=== PATIENT | female | born 1995 | race American Indian/Alaskan Native ===

== ENCOUNTER 2017-08-11 14:46 | Inpatient (IN) | payer OTHER, MEDICAID ==
[2017-08-11] MEDS ORDERED: LACTATED RINGERS 1,000 ML IV ONE (14:57)
[2017-08-11 15:17] LABS: Urine Drugs of Abuse Note Disclamer
[2017-08-11] MEDS ORDERED: PHENERGAN PO ONE (15:27)
[2017-08-11 15:31] LABS: Bilirubin,Urine NEG (Negative); Blood,Urine NEG (Negative); Ketones,Urine 80 mg/dL (Negative); Leukocyte Esterase,Urine NEG (Negative); Mucus,Urine 3+ /HPF; Nitrite,Urine NEG (Negative)
[2017-08-11 16:23] LABS: Basophils % (Auto) 0.3 % (0.0-1.8); Eosinophils % (Auto) 0.1 % (0.0-4.3); Hematocrit 44.7 % (30.3-42.9); Hemoglobin 15.9 gm/dl (10.1-14.3); Mean Corpuscular HGB Conc 36 % (30-34); Mean Corpuscular Hemoglobin 29 pg (28-32); Mean Corpuscular Volume 81 fl (79-97); Platelet Count 208 K/mm3 (140-440); Red Cell Distribution Width 13.7 % (13.2-15.2); White Blood Count 8.6 K/mm3 (4.5-11.0)
--- NOTE | 2017-08-11 16:43 | Ultrasound Report ---
FINAL REPORT PROCEDURE: US OB \T\gt; = 14 WEEKS FETUS TECHNIQUE: Transabdominal ultrasound of the gravid pelvis was performed. HISTORY: no care COMPARISON: None FINDINGS: There is a single live intrauterine gestation in cephalic presentation. The cervix is closed 3 centimeters in length. heart rate of 141 beats per minute was noted. The placenta is anterior without evident abruption or previa. Normal appearing 4 chambered heart, stomach, diaphragm, urinary bladder, head, and limited views of the spine and extremities was seen. BPD is 4.9 centimeters suggesting a gestational age of 20 weeks 6 days Head circumference is 17.1 centimeters suggesting a gestational age of 19 weeks 5 days Abdominal circumference is 14.3 centimeters suggesting a gestational age of 19 weeks 5 days Femur length is 3.3 centimeters suggesting a gestational age of 20 weeks 3 days Estimated weight is 327 grams Estimated date of confinement is 12/28/2017 IMPRESSION: Single live intrauterine gestation in cephalic presentation. Measured gestational age of 20 weeks 1 day.
[2017-08-11 16:55] LABS: Potassium TNR mmol/L (3.6-5.0); Sodium TNR mmol/L (137-145)
[2017-08-11 16:56] LABS: Anion Gap TNR mmol/L; Blood Urea Nitrogen TNR mg/dL (7-17); Carbon Dioxide TNR mmol/L (22-30); Chloride TNR mmol/L (98-107)
[2017-08-11 16:57] LABS: BUN/Creatinine Ratio TNR; Bilirubin,Direct TNR mg/dL (0-0.2); Bilirubin,Indirect TNR mg/dL; Bilirubin,Total TNR mg/dL (0.1-1.2); Calcium TNR mg/dL (8.4-10.2); Glucose TNR mg/dL (65-100)
[2017-08-11 16:58] LABS: Alanine Aminotransferase TNR units/L (7-56); Albumin TNR g/dL (3.9-5); Albumin/Globulin Ratio TNR %; Alkaline Phosphatase TNR units/L (35-129); Total Protein TNR g/dL (6.3-8.2)
[2017-08-11] MEDS ORDERED: PHENERGAN PR ONE (17:30)
[2017-08-11] MEDS ORDERED: D5LR 1,000 ML IV SCH (17:30)
[2017-08-11] MEDS ORDERED: REGLAN IV ONE (17:49)
[2017-08-11] MEDS ORDERED: CELESTONE SOLUSPAN IM ONE (18:13)
[2017-08-11 18:15] LABS: Alanine Aminotransferase 11 units/L (7-56); Albumin 3.5 g/dL (3.9-5); Albumin 3.6 g/dL (3.9-5); Albumin/Globulin Ratio 1.3 %; Albumin/Globulin Ratio 1.4 %; Alkaline Phosphatase 65 units/L (35-129); Anion Gap 19 mmol/L; BUN/Creatinine Ratio 20; Bilirubin,Direct 0.3 mg/dL (0-0.2); Bilirubin,Indirect 1.3 mg/dL; Bilirubin,Total 1.6 mg/dL (0.1-1.2); Blood Urea Nitrogen 8 mg/dL (7-17); Calcium 8.5 mg/dL (8.4-10.2); Carbon Dioxide 19 mmol/L (22-30); Chloride 97.7 mmol/L (98-107); Glucose 65 mg/dL (65-100); Potassium 3.1 mmol/L (3.6-5.0); Sodium 133 mmol/L (137-145); Total Protein 6.1 g/dL (6.3-8.2)
[2017-08-11] MEDS ORDERED: REGLAN IV PRN (18:46)
[2017-08-11] MEDS ORDERED: PHENERGAN PR PRN (18:47)
[2017-08-11] MEDS ORDERED: SUBLIMAZE IV ONE ×2 (19:32→20:15)
[2017-08-11] MEDS ORDERED: TRANSDERM-SCOP TD ONE (20:00)
[2017-08-11] MEDS ORDERED: PEPCID IV SCH (20:00)
--- NOTE | 2017-08-11 21:11 | Ultrasound Report ---
FINAL REPORT EXAM: US ABDOMEN COMPLETE HISTORY: abdominal pain, nausea and vomitting . Patient is 22 weeks . TECHNIQUE: Standard ultrasound of the abdomen PRIORS: None. FINDINGS: Examination of the gallbladder demonstrates no evidence for gallstones, distention, wall thickening, or pericholecystic fluid. No sonographic Pickering's sign is elicited. Common bile duct is normal in diameter measuring 3.7 mm. The liver is normal and homogeneous in echogenicity without focal abnormality or intrahepatic biliary dilatation. The pancreas is normal in thickness without focal abnormality or pancreatic duct dilatation. The spleen is normal in length measuring 8.3 cm and homogeneous in echogenicity without focal abnormalities. Examination of the kidneys demonstrates both to be normal in size and have normal cortical echogenicity and thickness. The right and left kidneys measure 9.8 cm and 10.0 cm in craniocaudal length, respectively. No evidence for calculi, hydronephrosis, or solid mass is seen in either kidney. The inferior vena cava and aorta are normal. Maximum diameter of the aorta is 1.4 cm in its proximal portion. IMPRESSION: Normal ultrasound of the abdomen.
--- NOTE | 2017-08-11 23:46 | History and Physical Report ---
History of Present Illness Date of examination: 08/11/17 Date of admission: 08/11/17 20:10 Chief complaint: nausea and vomiting and abdominal pain History of present illness: This is a 21 yo at 20 weeks here for nausea and vomiting for 5 days. She has also had some pelvic pain. She has a hx of biliary colic and was induced in her last for irretractable nausea and vomiting at 34 weeks. she is admitted for hyperemesis gravidarum. Despite fluids and antiemetics still nauseated Past History Past Medical History: asthma, other (Biliary colic, bronchitis ) Past Surgical History: no surgical history Family/Genetic History: diabetes Social history: no significant social history, single, smoking (former). denies : alcohol abuse, prescription drug abuse - Obstetrical History Expected Date of Delivery: 12/25/17 Actual Gestation: 20 Week(s) 4 Day(s) : 2 Para: 1 Hx # Term Pregnancies: 0 Number of Pregnancies: 1 Spontaneous Abortions: 0 Induced : 0 Number of Living Children: 1 Medications and Allergies Allergies Allergy/AdvReac Type Severity Reaction Status Date / Time ondansetron HCl Allergy Vomiting Verified 03/23/15 15:49 [From Zofran (as hydrochloride)] pineapple [Pineapple] Allergy Itching Verified 03/23/15 15:49 Home Medications Medication Instructions Recorded Confirmed Last Taken Type Pnv No.95/Ferrous Fum/Folic AC 1 each PO QDAY 12/07/15 04/18/16 Unknown History [ Caplet] HYDROcodone/APAP 5-325 [[place] 1 each PO Q6HR PRN #30 tablet 04/22/16 Unknown Rx 5/325] Ibuprofen [Motrin] 800 mg PO Q8HR PRN #60 tablet 04/22/16 Unknown Rx Active Meds: Active Medications Famotidine (Pepcid) 20 mg IV QDAY JUAN Dextrose/Lactated Ringer's (D5lr) 1,000 mls @ 200 mls/hr IV DIRECT JUAN Last Admin: 08/11/17 17:57 Dose: 200 mls/hr Potassium Chloride 20 meq/ (Dextrose/Lactated Ringer's) 1,010 mls @ 125 mls/hr IV DIRECT JUAN Influenza Virus Vaccine Quadrival (Fluarix Quad [id number](36 Mos+) 0.5 ml IM .ONCE ONE Stop: 08/12/17 12:01 Metoclopramide HCl (Reglan) 10 mg IV Q8H PRN PRN Reason: Nausea And Vomiting Pneumococcal Polyvalent Vaccine (Pneumovax 23) 0.5 ml IM .ONCE ONE Stop: 08/12/17 12:01 Promethazine HCl (Phenergan) 25 mg [place] Q4H PRN PRN Reason: Nausea And Vomiting Review of Systems Constitutional: weight loss, weakness Gastrointestinal: abdominal pain, nausea, vomiting Genitourinary: deferred Rectal Exam: deferred - Vital Signs Vital signs: Vital Signs Temp Resp 97.4 F L 18 08/11/17 14:50 08/11/17 14:50 Temp Pulse Resp BP Pulse Ox 97.8 F 66 18 105/56 08/11/17 21:09 08/11/17 21:09 08/11/17 14:50 08/11/17 21:09 - Physical Exam Breasts: Positive: deferred Cardiovascular: Regular rate, Normal S1 Lungs: Positive: Clear to auscultation, Normal air movement Abdomen: Positive: normal appearance, soft, normal bowel sounds. Negative: distention, tenderness, guarding Genitourinary (Female): Positive: normal external genitalia, normal perenium Vulva: both: normal Vagina: Positive: normal moisture Adnexa: both: normal Anus/Rectum: Positive: normal perianal skin Extremities: Positive: normal Deep Tendon Reflex Grade: Normal +2 - Obstetrical FHR: auscultation normal Results Result Diagrams: 08/11/17 15:20 08/11/17 17:38 Abnormal lab results 08/11/17 08/11/17 08/11/17 Range/Units 15:20 17:38 17:38 RBC 5.50 H (3.65-5.03) M/mm3 Hgb 15.9 H (10.1-14.3) gm/dl Hct 44.7 H (30.3-42.9) % MCHC 36 H (30-34) % [place] % (Auto) 8.2 H (0.0-7.3) % Sodium 133 L (137-145) mmol/L Potassium 3.1 L (3.6-5.0) mmol/L Chloride 97.7 L (98-107) mmol/L Carbon Dioxide 19 L (22-30) mmol/L Creatinine 0.4 L (0.7-1.2) mg/dL Total Bilirubin 1.60 H 1.60 H (0.1-1.2) mg/dL Direct Bilirubin 0.3 H (0-0.2) mg/dL Total Protein 6.1 L 6.1 L (6.3-8.2) g/dL Albumin 3.6 L 3.5 L (3.9-5) g/dL All other labs normal. Ultrasound: report reviewed Assessment and Plan A/P IUP 20 weeks nausea and vomiting - hyperemesis abdominal pain hypokalemia - replacement with K+ in IVF admit for antiemetics US to assess fetus with dating and abdominal US ( noraml findings on abdominal US) pain control with fentanyl will use phenergan, reglan and scopolamine consult with GI ( hx of biliary colic) consult with [facility] ( US shows synechia vs bands ) recheck labs in am
[2017-08-12] MEDS: KCL IV SCH ×2 (03:22→11:05)
[2017-08-12] MEDS: D5LR IV SCH ×2 (03:22→11:05)
[2017-08-12] MEDS: SUBLIMAZE IV SCH ×2 (06:08)
[2017-08-12 06:26] LABS: BUN/Creatinine Ratio 23; Blood Urea Nitrogen 7 mg/dL (7-17); Carbon Dioxide 23 mmol/L (22-30)
[2017-08-12 06:27] LABS: Alanine Aminotransferase 9 units/L (7-56); Albumin/Globulin Ratio 1.3 %; Alkaline Phosphatase 55 units/L (35-129); Anion Gap 15 mmol/L; Calcium 8.1 mg/dL (8.4-10.2); Chloride 102.1 mmol/L (98-107); Glucose 109 mg/dL (65-100); Sodium 137 mmol/L (137-145); Total Protein 5.3 g/dL (6.3-8.2)
[2017-08-12 06:32] LABS: Potassium 2.8 mmol/L (3.6-5.0)
--- NOTE | 2017-08-12 08:20 | Progress Note ---
Assessment and Plan A: IUP at 20w3d Nausea and vomiting with h/o hyperemesis in previous Left CVA tenderness P: Continue antiemetics MFM consulted GI consulted Urinalysis and urine culture Closely monitor clinical status Subjective - Subjective Date of service: 08/12/17 Principal diagnosis: IUP at 20w3d, Nausea and Vomiting Interval history: No emesis overnight. Pt complaining of back pain this morning Patient reports: no new complaints Objective - Vital Signs Vital Signs: Vital Signs - 12hr 08/11/17 08/12/17 08/12/17 21:09 03:11 05:13 Temperature 97.8 F Pulse Rate 66 65 81 Respiratory Rate Blood Pressure 96/51 89/48 Blood Pressure 105/56 [Right] 08/12/17 08/12/17 08/12/17 06:10 07:13 07:47 Temperature 98.2 F Pulse Rate 74 61 72 Respiratory 18 Rate Blood Pressure 97/50 93/52 Blood Pressure 98/51 [Right] 08/12/17 07:51 Temperature Pulse Rate 72 Respiratory Rate Blood Pressure 98/51 Blood Pressure [Right] - Exam Breasts: deferred Cardiovascular: Regular rate Lungs: Clear to auscultation Abdomen: Present: soft (gravid ), other (Left CVA tenderness ) Uterus: Present: normal (gravid ) FHR: auscultation normal Uterine Contraction Monitor Mode: External - Labs Labs: Abnormal Labs 08/11/17 08/11/17 08/11/17 15:20 17:38 17:38 RBC 5.50 H Hgb 15.9 H Hct 44.7 H MCHC 36 H [place] % (Auto) 8.2 H Sodium 133 L Potassium 3.1 L Chloride 97.7 L Carbon Dioxide 19 L Creatinine 0.4 L Glucose Calcium Total Bilirubin 1.60 H 1.60 H Direct Bilirubin 0.3 H Total Protein 6.1 L 6.1 L Albumin 3.6 L 3.5 L 08/12/17 05:41 RBC Hgb Hct MCHC [place] % (Auto) Sodium Potassium 2.8 L* Chloride Carbon Dioxide Creatinine 0.3 L Glucose 109 H Calcium 8.1 L Total Bilirubin 1.40 H Direct Bilirubin Total Protein 5.3 L Albumin 3.0 L Laboratory Results - last 24 hr 08/11/17 08/11/17 08/11/17 15:00 15:00 15:20 WBC 8.6 RBC 5.50 H Hgb 15.9 H Hct 44.7 H MCV 81 MCH 29 MCHC 36 H RDW 13.7 Plt Count 208 Lymph % (Auto) 27.0 [place] % (Auto) 8.2 H Eos % (Auto) 0.1 Baso % (Auto) 0.3 Lymph # 2.3 [place] # 0.7 Eos # 0.0 Baso # 0.0 Seg Neutrophils % 64.4 Seg Neutrophils # 5.6 Sodium Potassium Chloride Carbon Dioxide Anion Gap BUN Creatinine Estimated GFR BUN/Creatinine Ratio Glucose Calcium Total Bilirubin Direct Bilirubin Indirect Bilirubin AST ALT Alkaline Phosphatase Total Protein Albumin Albumin/Globulin Ratio Urine Color Dark yellow Urine Turbidity Clear Urine pH 6.0 Ur Specific [place] 1.029 Urine Protein 30 mg/dl Urine Glucose (UA) Neg Urine Ketones 80 Urine Blood Neg Urine Nitrite Neg Urine Bilirubin Neg Urine Urobilinogen 4.0 Ur Leukocyte Esterase Neg Urine WBC (Auto) 1.0 Urine RBC (Auto) 1.0 U Epithel Cells (Auto) 3.0 Urine Mucus 3+ Urine Opiates Screen Presumptive negative Urine Methadone Screen Presumptive negative Ur Barbiturates Screen Presumptive negative Ur Phencyclidine Scrn Presumptive negative Ur Amphetamines Screen Presumptive negative U Benzodiazepines Scrn Presumptive negative Urine Cocaine Screen Presumptive negative U Marijuana (THC) Screen Presumptive positive Drugs of Abuse Note Disclamer 08/11/17 08/11/17 08/11/17 15:20 17:38 17:38 WBC RBC Hgb Hct MCV MCH MCHC RDW Plt Count Lymph % (Auto) [place] % (Auto) Eos % (Auto) Baso % (Auto) Lymph # [place] # Eos # Baso # Seg Neutrophils % Seg Neutrophils # Sodium TNR 133 L Potassium TNR 3.1 L Chloride TNR 97.7 L Carbon Dioxide TNR 19 L Anion Gap TNR 19 BUN TNR 8 Creatinine TNR 0.4 L Estimated GFR TNR > 60 BUN/Creatinine Ratio TNR 20 Glucose TNR 65 Calcium TNR 8.5 Total Bilirubin TNR 1.60 H 1.60 H Direct Bilirubin TNR 0.3 H Indirect Bilirubin TNR 1.3 AST TNR 25 25 ALT TNR 11 11 Alkaline Phosphatase TNR 65 64 Total Protein TNR 6.1 L 6.1 L Albumin TNR 3.6 L 3.5 L Albumin/Globulin Ratio TNR 1.4 1.3 Urine Color Urine Turbidity Urine pH Ur Specific [place] Urine Protein Urine Glucose (UA) Urine Ketones Urine Blood Urine Nitrite Urine Bilirubin Urine Urobilinogen Ur Leukocyte Esterase Urine WBC (Auto) Urine RBC (Auto) U Epithel Cells (Auto) Urine Mucus Urine Opiates Screen Urine Methadone Screen Ur Barbiturates Screen Ur Phencyclidine Scrn Ur Amphetamines Screen U Benzodiazepines Scrn Urine Cocaine Screen U Marijuana (THC) Screen Drugs of Abuse Note 08/12/17 05:41 WBC RBC Hgb Hct MCV MCH MCHC RDW Plt Count Lymph % (Auto) [place] % (Auto) Eos % (Auto) Baso % (Auto) Lymph # [place] # Eos # Baso # Seg Neutrophils % Seg Neutrophils # Sodium 137 Potassium 2.8 L* Chloride 102.1 Carbon Dioxide 23 Anion Gap 15 BUN 7 Creatinine 0.3 L Estimated GFR > 60 BUN/Creatinine Ratio 23 Glucose 109 H Calcium 8.1 L Total Bilirubin 1.40 H Direct Bilirubin Indirect Bilirubin AST 20 ALT 9 Alkaline Phosphatase 55 Total Protein 5.3 L Albumin 3.0 L Albumin/Globulin Ratio 1.3 Urine Color Urine Turbidity Urine pH Ur Specific [place] Urine Protein Urine Glucose (UA) Urine Ketones Urine Blood Urine Nitrite Urine Bilirubin Urine Urobilinogen Ur Leukocyte Esterase Urine WBC (Auto) Urine RBC (Auto) U Epithel Cells (Auto) Urine Mucus Urine Opiates Screen Urine Methadone Screen Ur Barbiturates Screen Ur Phencyclidine Scrn Ur Amphetamines Screen U Benzodiazepines Scrn Urine Cocaine Screen U Marijuana (THC) Screen Drugs of Abuse Note
--- NOTE | 2017-08-12 08:52 | Consultation ---
History of Present Illness Reason for consult: other (This is a 21 yo at 20.3 weeks here for nausea and vomiting for 5 days. Patient reports N/V started after eating at [employer] She has a hx of biliary colic and was induced in her last for irretractable nausea and vomiting at 34 weeks. she is admitted for hyperemesis gravidarum. Despite fluids and antiemetics still nauseated . Patient reported pre weight of 138 lbs . Todays weight of 127 lbs ( 11 lbs weight loss) Patient states she is able to tolerate ice water with no emesis. Patient reports left lower back pain ( intermittent) NO PNC ) Past History Past Medical History: asthma, other (Biliary colic, bronchitis ) Past Surgical History: no surgical history Family/Genetic History: diabetes - Obstetrical History : 2 Medications and Allergies Allergies Allergy/AdvReac Type Severity Reaction Status Date / Time ondansetron HCl Allergy Vomiting Verified 03/23/15 15:49 [From Zofran (as hydrochloride)] pineapple [Pineapple] Allergy Itching Verified 03/23/15 15:49 Home Medications Medication Instructions Recorded Confirmed Last Taken Type Pnv No.95/Ferrous Fum/Folic AC 1 each PO QDAY 16 04/18/16 Unknown History [ [place]] HYDROcodone/APAP 5-325 [[place] 1 each PO Q6HR PRN #30 tablet 04/22/16 Unknown Rx 5/325] Ibuprofen [Motrin] 800 mg PO Q8HR PRN #60 tablet 04/22/16 Unknown Rx Active Meds: Active Medications Famotidine (Pepcid) 20 mg IV QDAY JUAN Fentanyl (Sublimaze) 50 mcg IV Q4H JUAN Last Admin: 08/12/17 06:08 Dose: 50 mcg Dextrose/Lactated Ringer's (D5lr) 1,000 mls @ 200 mls/hr IV DIRECT JUAN Last Admin: 08/11/17 17:57 Dose: 200 mls/hr Potassium Chloride 20 meq/ (Dextrose/Lactated Ringer's) 1,010 mls @ 125 mls/hr IV DIRECT JUAN Last Admin: 08/12/17 03:22 Dose: 125 mls/hr Influenza Virus Vaccine Quadrival (Fluarix Quad [id number](36 Mos+) 0.5 ml IM .ONCE ONE Stop: 08/12/17 12:01 Metoclopramide HCl (Reglan) 10 mg IV Q8H PRN PRN Reason: Nausea And Vomiting Pneumococcal Polyvalent Vaccine (Pneumovax 23) 0.5 ml IM .ONCE ONE Stop: 08/12/17 12:01 Promethazine HCl (Phenergan) 25 mg [place] Q4H PRN PRN Reason: Nausea And Vomiting Review of Systems Constitutional: no weight loss (11 lbs from pre weight ), no fever Eyes: no deferred Ears, nose, mouth and throat: no deferred Cardiovascular: no chest pain, no palpitations, no rapid/irregular heart beat, no syncope, no lightheadedness Respiratory: no shortness of breath, no pain on inspiration Breasts: deferred Gastrointestinal: abdominal pain (upon emesis ), nausea, vomiting Genitourinary: no vaginal bleeding, no vaginal discharge, no leakage of fluid, no pelvic pain Rectal Exam: deferred Musculoskeletal: other (Left CVA tenderness ), no neck pain Integumentary: no rash Neurological: no seizures, no syncope Psychiatric: no depression Endocrine: no palpatations Allergic/Immunologic: no wheezing - Vital Signs Vital signs: Vital Signs Temp Resp 97.4 F L 18 08/11/17 14:50 08/11/17 14:50 Temp Pulse Resp BP Pulse Ox 98.2 F 72 18 98/51 08/12/17 07:47 08/12/17 07:51 08/12/17 07:47 08/12/17 07:51 - Physical Exam Breasts: Positive: deferred Cardiovascular: Regular rate Lungs: Positive: Normal air movement Abdomen: Positive: tenderness (upon palpation ). Negative: guarding, rigidity Uterus: Negative: tender Deep Tendon Reflex Grade: Normal +2 - Obstetrical FHR: auscultation normal (+FHT noted during BS consultation ) Uterine Contraction Monitor Mode: External Uterine Contraction Pattern: Absent Results Result Diagrams: 08/13/17 07:01 08/12/17 12:03 Abnormal lab results 08/11/17 08/11/17 08/11/17 Range/Units 15:20 17:38 17:38 RBC 5.50 H (3.65-5.03) M/mm3 Hgb 15.9 H (10.1-14.3) gm/dl Hct 44.7 H (30.3-42.9) % MCHC 36 H (30-34) % [place] % (Auto) 8.2 H (0.0-7.3) % Sodium 133 L (137-145) mmol/L Potassium 3.1 L (3.6-5.0) mmol/L Chloride 97.7 L (98-107) mmol/L Carbon Dioxide 19 L (22-30) mmol/L Creatinine 0.4 L (0.7-1.2) mg/dL Glucose (65-100) mg/dL Calcium (8.4-10.2) mg/dL Total Bilirubin 1.60 H 1.60 H (0.1-1.2) mg/dL Direct Bilirubin 0.3 H (0-0.2) mg/dL Total Protein 6.1 L 6.1 L (6.3-8.2) g/dL Albumin 3.6 L 3.5 L (3.9-5) g/dL 08/12/17 Range/Units 05:41 RBC (3.65-5.03) M/mm3 Hgb (10.1-14.3) gm/dl Hct (30.3-42.9) % MCHC (30-34) % [place] % (Auto) (0.0-7.3) % Sodium (137-145) mmol/L Potassium 2.8 L* (3.6-5.0) mmol/L Chloride (98-107) mmol/L Carbon Dioxide (22-30) mmol/L Creatinine 0.3 L (0.7-1.2) mg/dL Glucose 109 H (65-100) mg/dL Calcium 8.1 L (8.4-10.2) mg/dL Total Bilirubin 1.40 H (0.1-1.2) mg/dL Direct Bilirubin (0-0.2) mg/dL Total Protein 5.3 L (6.3-8.2) g/dL Albumin 3.0 L (3.9-5) g/dL All other labs normal. Ultrasound: pending (Preliminary report U/S concern for amniotic band vs uterine synechiae ), report reviewed (See chart for full report DWIGHT 12/28/17 SIUP 20.1 weeks EFW 327 grams cervical length of 3 cm ), other (08/11/18 ABD U/ S- Normal U/S of the abd ( see chart for full report) ) Assessment and Plan A: IUP at 20w3d Nausea and vomiting started on Saturday PTD at 34 weeks due to refractory hyperemesis last Left CVA tenderness Afebrile No PNC Preliminary U/S concern for synechiae vs amniotic bands History of biliary colic Hypokalemia- K+ replacement in progress Positive UDS- THC Negative abdominal U/S Plan per Dr Harkins : Continue antiemetics Document normal TSH Daily maternal weight Strict I&O GI consult Document negative urinalysis and urine culture Closely monitor clinical status with any concerns please notify [facility] provider convenience store manager - Dr. Harkins
[2017-08-12 10:07] LABS: Bacteria,Urine 1+ /HPF (Negative); Mucus,Urine FEW /HPF
[2017-08-12 10:20] LABS: Bilirubin,Urine NEG (Negative); Blood,Urine NEG (Negative); Ketones,Urine NEG (Negative); Leukocyte Esterase,Urine SM (Negative); Nitrite,Urine NEG (Negative); Protein,Urine <15 mg/dL mg/dL (Negative)
--- NOTE | 2017-08-12 10:29 | Gastroenterology Consultation ---
History of Present Illness - Reason for Consult Consult date: 08/12/17 nausea/vomiting Requesting physician: DIANE ORTIZ - History of Present Illness Patient is a 21 y/o female at 20weeks gestation with PMH of asthma who was admitted for nausea and vomiting x 5 days with some pelvic pain. She has a h/o hyperemesis (questionable biliary colic) with previous . Abd u/s was normal with no evidence of gallstones or dilated CBD. LFTs WNL. This am pt was resting in bed. No acute distress noted. Admits to intermittent mild pelvic pain but no episodes of vomiting overnight or this am. Tolerating water. Denies fever, jaundice, hematemesis, melena, diarrhea, constipation, or hematochezia. No NSAID use. No hx of PUD or liver disease. Last EGD a couple of years ago in [place] with negative results. Past History Past Medical History: other (asthma, hyperemesis with previous ) Past Surgical History: No surgical history Social history: no significant social history, single, smoking (former). denies : alcohol abuse, prescription drug abuse Medications and Allergies Allergies Allergy/AdvReac Type Severity Reaction Status Date / Time ondansetron HCl Allergy Vomiting Verified 03/23/15 15:49 [From Zofran (as hydrochloride)] pineapple [Pineapple] Allergy Itching Verified 03/23/15 15:49 Home Medications Medication Instructions Recorded Confirmed Last Taken Type Pnv No.95/Ferrous Fum/Folic AC 1 each PO QDAY 12/07/15 04/18/16 Unknown History [ Caplet] HYDROcodone/APAP 5-325 [[place] 1 each PO Q6HR PRN #30 tablet 04/22/16 Unknown Rx 5/325] Ibuprofen [Motrin] 800 mg PO Q8HR PRN #60 tablet 04/22/16 Unknown Rx Active Meds: Active Medications Acetaminophen (Tylenol) 650 mg PO Q4H PRN PRN Reason: Pain, Mild (1-3) Famotidine (Pepcid) 20 mg IV QDAY JUAN Dextrose/Lactated Ringer's (D5lr) 1,000 mls @ 200 mls/hr IV DIRECT JUAN Last Admin: 08/11/17 17:57 Dose: 200 mls/hr Potassium Chloride 20 meq/ (Dextrose/Lactated Ringer's) 1,010 mls @ 125 mls/hr IV DIRECT JUAN Last Admin: 08/12/17 03:22 Dose: 125 mls/hr Influenza Virus Vaccine Quadrival (Fluarix Quad [id number] Mos+) 0.5 ml IM .ONCE ONE Stop: 08/12/17 12:01 Metoclopramide HCl (Reglan) 10 mg IV Q8H PRN PRN Reason: Nausea And Vomiting Pneumococcal Polyvalent Vaccine (Pneumovax 23) 0.5 ml IM .ONCE ONE Stop: 08/12/17 12:01 Promethazine HCl (Phenergan) 25 mg WA Q4H PRN PRN Reason: Nausea And Vomiting Review of Systems - Review of Systems All systems: negative Gastrointestinal: nausea, vomiting Female Genitourinary: other (pelvic pain) Exam - Constitutional Vital Signs: Temp Pulse Resp BP Pulse Ox 98.2 F 72 18 98/51 08/12/17 07:47 08/12/17 07:51 08/12/17 07:47 08/12/17 07:51 General appearance: no acute distress, well-nourished - EENT Eyes: PERRL, EOM intact ENT: hearing intact - Neck Neck: supple, normal ROM - Respiratory Respiratory: bilateral: CTA - Cardiovascular Rhythm: regular Heart Sounds: Present: S1 & S2 Extremities: No edema - Gastrointestinal General gastrointestinal: Present: soft, non-tender, non-distended, normal bowel sounds - Integumentary Integumentary: Present: warm, dry - Neurologic Neurological: alert and oriented x3 - Labs CBC & Chem 7: 08/11/17 15:20 08/12/17 05:41 Lab Results: Laboratory Results - last 24 hr 08/11/17 08/11/17 08/11/17 15:00 15:00 15:20 WBC 8.6 RBC 5.50 H Hgb 15.9 H Hct 44.7 H MCV 81 MCH 29 MCHC 36 H RDW 13.7 Plt Count 208 Lymph % (Auto) 27.0 [place] % (Auto) 8.2 H Eos % (Auto) 0.1 Baso % (Auto) 0.3 Lymph # 2.3 [place] # 0.7 Eos # 0.0 Baso # 0.0 Seg Neutrophils % 64.4 Seg Neutrophils # 5.6 Sodium Potassium Chloride Carbon Dioxide Anion Gap BUN Creatinine Estimated GFR BUN/Creatinine Ratio Glucose Calcium Total Bilirubin Direct Bilirubin Indirect Bilirubin AST ALT Alkaline Phosphatase Total Protein Albumin Albumin/Globulin Ratio Urine Color Dark yellow Urine Turbidity Clear Urine pH 6.0 Ur Specific [place] 1.029 Urine Protein 30 mg/dl Urine Glucose (UA) Neg Urine Ketones 80 Urine Blood Neg Urine Nitrite Neg Ur Reducing Substances Urine Bilirubin Neg Urine Ictotest Urine Urobilinogen 4.0 Ur Leukocyte Esterase Neg Urine WBC (Auto) 1.0 Urine RBC (Auto) 1.0 U Epithel Cells (Auto) 3.0 Urine Bacteria (Auto) Amorphous Crystals Urine Mucus 3+ Urine Opiates Screen Presumptive negative Urine Methadone Screen Presumptive negative Ur Barbiturates Screen Presumptive negative Ur Phencyclidine Scrn Presumptive negative Ur Amphetamines Screen Presumptive negative U Benzodiazepines Scrn Presumptive negative Urine Cocaine Screen Presumptive negative U Marijuana (THC) Screen Presumptive positive Drugs of Abuse Note Disclamer 08/11/17 08/11/17 08/11/17 15:20 17:38 17:38 WBC RBC Hgb Hct MCV MCH MCHC RDW Plt Count Lymph % (Auto) [place] % (Auto) Eos % (Auto) Baso % (Auto) Lymph # [place] # Eos # Baso # Seg Neutrophils % Seg Neutrophils # Sodium TNR 133 L Potassium TNR 3.1 L Chloride TNR 97.7 L Carbon Dioxide TNR 19 L Anion Gap TNR 19 BUN TNR 8 Creatinine TNR 0.4 L Estimated GFR TNR > 60 BUN/Creatinine Ratio TNR 20 Glucose TNR 65 Calcium TNR 8.5 Total Bilirubin TNR 1.60 H 1.60 H Direct Bilirubin TNR 0.3 H Indirect Bilirubin TNR 1.3 AST TNR 25 25 ALT TNR 11 11 Alkaline Phosphatase TNR 65 64 Total Protein TNR 6.1 L 6.1 L Albumin TNR 3.6 L 3.5 L Albumin/Globulin Ratio TNR 1.4 1.3 Urine Color Urine Turbidity Urine pH Ur Specific [place] Urine Protein Urine Glucose (UA) Urine Ketones Urine Blood Urine Nitrite Ur Reducing Substances Urine Bilirubin Urine Ictotest Urine Urobilinogen Ur Leukocyte Esterase Urine WBC (Auto) Urine RBC (Auto) U Epithel Cells (Auto) Urine Bacteria (Auto) Amorphous Crystals Urine Mucus Urine Opiates Screen Urine Methadone Screen Ur Barbiturates Screen Ur Phencyclidine Scrn Ur Amphetamines Screen U Benzodiazepines Scrn Urine Cocaine Screen U Marijuana (THC) Screen Drugs of Abuse Note 08/12/17 08/12/17 05:41 09:43 WBC RBC Hgb Hct MCV MCH MCHC RDW Plt Count Lymph % (Auto) [place] % (Auto) Eos % (Auto) Baso % (Auto) Lymph # [place] # Eos # Baso # Seg Neutrophils % Seg Neutrophils # Sodium 137 Potassium 2.8 L* Chloride 102.1 Carbon Dioxide 23 Anion Gap 15 BUN 7 Creatinine 0.3 L Estimated GFR > 60 BUN/Creatinine Ratio 23 Glucose 109 H Calcium 8.1 L Total Bilirubin 1.40 H Direct Bilirubin Indirect Bilirubin AST 20 ALT 9 Alkaline Phosphatase 55 Total Protein 5.3 L Albumin 3.0 L Albumin/Globulin Ratio 1.3 Urine Color Yellow Urine Turbidity Clear Urine pH 7.0 Ur Specific [place] 1.009 Urine Protein <15 mg/dl Urine Glucose (UA) Neg Urine Ketones Neg Urine Blood Neg Urine Nitrite Neg Ur Reducing Substances Not Reportable Urine Bilirubin Neg Urine Ictotest Not Reportable Urine Urobilinogen 4.0 Ur Leukocyte Esterase Sm Urine WBC (Auto) 2.0 Urine RBC (Auto) 1.0 U Epithel Cells (Auto) 1.0 Urine Bacteria (Auto) 1+ Amorphous Crystals Few Urine Mucus Few Urine Opiates Screen Urine Methadone Screen Ur Barbiturates Screen Ur Phencyclidine Scrn Ur Amphetamines Screen U Benzodiazepines Scrn Urine Cocaine Screen U Marijuana (THC) Screen Drugs of Abuse Note Assessment and Plan 1.nausea/vomiting -WBC-WNL -afebrile -LFTs- WNL -abd u/s normal -etiology most likely 2/2 hyperemesis gravidarum -pt currently tolerating drinking water w/o vomiting -will start on clear liquid diet, advance as tolerated -continue antiemetics and supportive care -limit narcotics -no further GI recommendations at this time -pt is okay to be d/c home from a GI standpoint once tolerating po intake -will sign off
[2017-08-12] MEDS ORDERED: D5LR W/KCL 20 MEQ 20 MEQ/1,000 ML BAG IV SCH (11:00)
[2017-08-12] MEDS ORDERED: PNEUMOVAX 23 IM ONE (12:00)
[2017-08-12] MEDS ORDERED: Fluarix Quad 2017-2018(36 MOS+ IM ONE (12:00)
[2017-08-12] MEDS: TYLENOL PO PRN ×3 (12:07→22:42)
[2017-08-12 12:58] LABS: Alanine Aminotransferase 8 units/L (7-56); Albumin 2.9 g/dL (3.9-5); Albumin/Globulin Ratio 1.3 %; Alkaline Phosphatase 54 units/L (35-129); Anion Gap 14 mmol/L; BUN/Creatinine Ratio 17; Blood Urea Nitrogen 5 mg/dL (7-17); Carbon Dioxide 24 mmol/L (22-30); Chloride 102.5 mmol/L (98-107); Glucose 87 mg/dL (65-100); Potassium 3.2 mmol/L (3.6-5.0); Sodium 137 mmol/L (137-145); Total Protein 5.1 g/dL (6.3-8.2)
[2017-08-13 07:15] LABS: Basophils % (Auto) 0.4 % (0.0-1.8); Eosinophils % (Auto) 1.2 % (0.0-4.3); Hematocrit 35.3 % (30.3-42.9); Hemoglobin 12.2 gm/dl (10.1-14.3); Mean Corpuscular HGB Conc 35 % (30-34); Mean Corpuscular Hemoglobin 28 pg (28-32); Mean Corpuscular Volume 81 fl (79-97); Platelet Count 167 K/mm3 (140-440); Red Blood Count 4.35 M/mm3 (3.65-5.03); Red Cell Distribution Width 13.6 % (13.2-15.2); White Blood Count 7.1 K/mm3 (4.5-11.0)
[2017-08-13 08:26] VITALS: BP 113/55
--- NOTE | 2017-08-13 08:40 | Progress Note ---
Assessment and Plan - Patient Problems (1) Hyperemesis affecting , antepartum Current Visit: Yes Status: Acute Plan to address problem: discharge home followup with OB provider Subjective - Subjective Date of service: 08/13/17 Principal diagnosis: IUP at 20w3d, Nausea and Vomiting Interval history: Patient reports feeling better. Had regular food last night that she tolerated. Patient reports: no new complaints Objective - Vital Signs Vital Signs: Vital Signs - 12hr 08/12/17 08/13/17 08/13/17 22:42 00:19 05:14 Temperature 98.2 F 98.9 F Pulse Rate 71 61 Respiratory 18 18 18 Rate Blood Pressure 107/57 Blood Pressure 107/57 96/48 [Right] 08/13/17 08/13/17 08/13/17 05:18 08:23 08:29 Temperature 97.5 F L Pulse Rate 61 63 63 Respiratory 24 Rate Blood Pressure 96/48 113/55 Blood Pressure 113/55 [Right] - Exam Abdomen: Present: normal appearance, soft - Labs Labs: Abnormal Labs 08/11/17 08/11/17 08/11/17 15:20 17:38 17:38 RBC 5.50 H Hgb 15.9 H Hct 44.7 H MCHC 36 H Lymph % (Auto) [place] % (Auto) 8.2 H Sodium 133 L Potassium 3.1 L Chloride 97.7 L Carbon Dioxide 19 L BUN Creatinine 0.4 L Glucose Calcium Total Bilirubin 1.60 H 1.60 H Direct Bilirubin 0.3 H Total Protein 6.1 L 6.1 L Albumin 3.6 L 3.5 L 08/12/17 08/12/17 08/13/17 05:41 12:03 07:01 RBC Hgb Hct MCHC 35 H Lymph % (Auto) 37.7 H [place] % (Auto) 8.5 H Sodium Potassium 2.8 L* 3.2 L Chloride Carbon Dioxide BUN 5 L Creatinine 0.3 L 0.3 L Glucose 109 H Calcium 8.1 L 8.0 L Total Bilirubin 1.40 H 1.40 H Direct Bilirubin Total Protein 5.3 L 5.1 L Albumin 3.0 L 2.9 L Laboratory Results - last 24 hr 08/12/17 08/12/17 08/13/17 09:43 12:03 07:01 WBC 7.1 RBC 4.35 Hgb 12.2 D Hct 35.3 D MCV 81 MCH 28 MCHC 35 H RDW 13.6 Plt Count 167 Lymph % (Auto) 37.7 H [place] % (Auto) 8.5 H Eos % (Auto) 1.2 Baso % (Auto) 0.4 Lymph # 2.7 [place] # 0.6 Eos # 0.1 Baso # 0.0 Seg Neutrophils % 52.2 Seg Neutrophils # 3.7 Sodium 137 Potassium 3.2 L Chloride 102.5 Carbon Dioxide 24 Anion Gap 14 BUN 5 L Creatinine 0.3 L Estimated GFR > 60 BUN/Creatinine Ratio 17 Glucose 87 Calcium 8.0 L Total Bilirubin 1.40 H AST 20 ALT 8 Alkaline Phosphatase 54 Total Protein 5.1 L Albumin 2.9 L Albumin/Globulin Ratio 1.3 Urine Color Yellow Urine Turbidity Clear Urine pH 7.0 Ur Specific [place] 1.009 Urine Protein <15 mg/dl Urine Glucose (UA) Neg Urine Ketones Neg Urine Blood Neg Urine Nitrite Neg Ur Reducing Substances Not Reportable Urine Bilirubin Neg Urine Ictotest Not Reportable Urine Urobilinogen 4.0 Ur Leukocyte Esterase Sm Urine WBC (Auto) 2.0 Urine RBC (Auto) 1.0 U Epithel Cells (Auto) 1.0 Urine Bacteria (Auto) 1+ Amorphous Crystals Few Urine Mucus Few
--- NOTE | 2017-08-13 08:43 | Discharge Summary ---
Providers - Providers Date of Admission: 08/12/17 08:19 Date of discharge: 08/13/17 Attending physician: DIANE ORTIZ MD 08/11/17 19:24 Consult to Physician [CONS] Routine Consulting Provider: [facility] Reason For Exam: nausea and vomiting Place consult to:: gastroenterology Notified:: yes Phone number called:: [phone] Was contact made?: Yes If yes, spoke with:: Edna Time called:: 07:24 Comment:: call placed to ans service 08/11/17 19:32 Consult to Physician [CONS] Urgent Consulting Provider: VAL HENRIQUEZ Reason For Exam: Evaluate amniotic bands Place consult to:: [facility] Notified:: answering service Phone number called:: [phone] Comment:: spoke with answering service physician will return call Primary care physician: SMT OPERATOR Hospitalization Reason for admission: other (hyperemesis) Discharge diagnosis: other (hyperemesis) Hospital course: patient admitted for retractable nausea and vomiting. Evaluated by GI without any significant findings. Anti-emetics administered with improvement in symptoms Condition at discharge: Good Disposition: DC-01 TO HOME OR SELFCARE - Discharge Diagnoses (1) Hyperemesis affecting , antepartum Status: Acute Plan - Provider Discharge Summary Additional instructions: [] Smoking cessation referral if applicable(refer to patient education folder for contact #) [] Refer to [facility] Booklet Call your doctor immediately for: * Fever > 100.5 * Heavy vaginal bleeding ( >1 pad per hour) * Severe persistent headache * Shortness of breath * Reddened, hot, painful area to leg or breast * followup ob appt in one week - Follow up plan
[2017-08-13] MEDS: TYLENOL PO PRN (09:06)
== END 2017-08-13 11:25 | disposition home or self-care (01) | DRG 781 ==
LOC: TRG 14:46 → LD 20:10 → OBSVTOIN 08-12 08:19
PROVIDERS: ADMIT Obstetrics & Gynecology; ATTEND Obstetrics & Gynecology
PROC: 3E0234Z Introduction of Serum, Toxoid and Vaccine into Muscle, Percutaneous Approach (ICD-10-PCS; principal; 2017-08-12)
DX: O21.0 Mild hyperemesis gravidarum (principal); Z3A.20 20 weeks gestation of pregnancy; E87.6 Hypokalemia; O99.512 Diseases of the respiratory system complicating pregnancy, second trimester; J45.909 Unspecified asthma, uncomplicated; Z83.3 Family history of diabetes mellitus; Z79.899 Other long term (current) drug therapy; Z23 Encounter for immunization
CPT/HCPCS: 36415; 76700; 76805; 80053; 80074; 80307; 81001; 85025; 87045; 87086; 90686; 90732; G0378; J2765; J3010; J7120; J7121

== ENCOUNTER 2017-09-13 19:39 | Inpatient (IN) | payer OTHER, MEDICAID ==
[2017-09-13] MEDS ORDERED: LACTATED RINGERS 1,000 ML IV ONE (23:42)
[2017-09-13 23:52] LABS: Urine Drugs of Abuse Note Disclamer
[2017-09-14 00:05] LABS: Bilirubin,Urine NEG (Negative); Blood,Urine SM (Negative); Ketones,Urine 80 mg/dL (Negative); Leukocyte Esterase,Urine LG (Negative); Mucus,Urine 3+ /HPF; Nitrite,Urine NEG (Negative); Urobilinogen,Urine < 2.0 mg/dL (<2.0)
[2017-09-14] MEDS ORDERED: PITOCin/NS 20 UNIT/1000ML DRIP 20,000 MILLIUNITS/1,000 ML BAG IV ONE (00:07)
[2017-09-14] MEDS ORDERED: PEPCID IV ONE ×2 (00:10→00:11)
[2017-09-14] MEDS ORDERED: ANCEF/STERILE WATER 2 GM/20 ML IV NR (00:10)
[2017-09-14] MEDS ORDERED: REGLAN IV ONE (00:10)
[2017-09-14] MEDS ORDERED: ANCEF/STERILE WATER 2 GM/20 ML 2 GM/20 ML SYRINGE IV ONE (00:11)
[2017-09-14] MEDS ORDERED: BICITRA ONE (00:11)
[2017-09-14] MEDS ORDERED: REGLAN ONE (00:11)
[2017-09-14] MEDS ORDERED: ANCEF/STERILE WATER 2 GM/20 ML IV ONE (00:12)
[2017-09-14] MEDS ORDERED: DIPRIVAN 10 MG/ML IV ONE (00:17)
[2017-09-14] MEDS ORDERED: QUELICIN ONE (00:17)
[2017-09-14] MEDS ORDERED: WATER FOR IRRIG STERILE IR ONE (00:21)
[2017-09-14] MEDS ORDERED: NACL 0.9% IR ONE (00:21)
[2017-09-14] MEDS ORDERED: SUBLIMAZE ONE (00:33)
[2017-09-14] MEDS ORDERED: VERSED ONE (00:34)
[2017-09-14] MEDS ORDERED: NEO SYNEPHRINE/NS Syringe(OR USE) IV ONE (01:23)
[2017-09-14] MEDS ORDERED: MORPHINE IV PRN ×2 (01:28→01:29)
[2017-09-14] MEDS ORDERED: DEMEROL IV PRN (01:28)
--- NOTE | 2017-09-14 01:28 | Post Anesthesia Evaluation ---
- Post Anesthesia Evaluation Patient Participated: Yes Airway Patent: Yes Stable Respiratory Function: Yes Nausea/Vomiting: No Temp > 96.8F: Yes Pain Manageable: Yes Adequeate Hydration: Yes Anesthesia Complications: No Block Receding Appropriately: Not Applicable Patient on Ventilator: No
--- NOTE | 2017-09-14 01:28 | Anesthesia Consultation ---
Anesthesia Consult and Med Hx Date of service: 09/14/17 - Airway Anesthetic Teeth Evaluation: Good ROM Head & Neck: Adequate Mental/Hyoid Distance: Adequate Mallampati Class: Class II Intubation Access Assessment: Probably Good - Pulmonary Exam CTA: Yes - Cardiac Exam Cardiac Exam: RRR - Pre-Operative Health Status ASA Pre-Surgery Classification: ASA2, Emergency Proposed Anesthetic Plan: General - Pulmonary Hx Asthma: Yes COPD: No Hx Pneumonia: No - Cardiovascular System Hx Hypertension: No - Central Nervous System Hx Seizures: No Hx Psychiatric Problems: No - Endocrine Hx Renal Disease: No Hx End Stage Renal Disease: No Hx Hypothyroidism: No Hx Hyperthyroidism: No - Hematic Hx Anemia: No Hx Sickle Cell Disease: No - Other Systems Hx Alcohol Use: No
--- NOTE | 2017-09-14 01:28 | Anesthesia Day of Surgery ---
Anesthesia Day of Surgery - Day of Surgery Patient Examined: Yes Patient H&P Reviewed: Yes Patient is NPO: Yes
[2017-09-14] MEDS ORDERED: PERCOCET 5/325 PO PRN (01:29)
--- NOTE | 2017-09-14 01:49 | History and Physical Report ---
History of Present Illness Date of examination: 09/14/17 Date of admission: 09/14/17 00:20 Chief complaint: "I feel sick" History of present illness: 22y/o @ 25+3 weeks presents to triage with the complaint of nausea and vomiting. During her evaluation, the patient was found to have bulging membranes beyond her introitus. The patient was taken emergently to a LDR. Bedside ultrasound was performed and demonstrated the fetus was in transverse position. The heart was noted as bradycardic on ultrasound. Incidental amniotomy was performed while attempting to mobilize the amniotic sac. A sterile cervical exam was performed once the membranes were ruptured and the cervix was 3-4cm and with an inability to identify the presenting part. The patient was taken emergently for a primary delivery. Past History Past Medical History: no pertinent history Past Surgical History: no surgical history - Obstetrical History Expected Date of Delivery: 12/25/17 Actual Gestation: 25 Week(s) 3 Day(s) : 2 Para: 1 Hx # Term Pregnancies: 0 Number of Pregnancies: 1 Spontaneous Abortions: 0 Induced : 0 Number of Living Children: 1 Medications and Allergies Allergies Allergy/AdvReac Type Severity Reaction Status Date / Time ondansetron HCl Allergy Vomiting Verified 03/23/15 15:49 [From Zofran (as hydrochloride)] pineapple [Pineapple] Allergy Itching Verified 03/23/15 15:49 Home Medications Medication Instructions Recorded Confirmed Last Taken Type Pnv No.95/Ferrous Fum/Folic AC 1 each PO QDAY 12/07/15 04/18/16 Unknown History [ Caplet] HYDROcodone/APAP 5-325 [[place] 1 each PO Q6HR PRN #30 tablet 04/22/16 Unknown Rx 5/325] Ibuprofen [Motrin] 800 mg PO Q8HR PRN #60 tablet 04/22/16 Unknown Rx Active Meds: Active Medications Ketorolac Tromethamine (Toradol) 30 mg IV Q6H PRN PRN Reason: Pain, Moderate (4-6) Stop: 09/19/17 01:28 Meperidine HCl (Demerol) 12.5 mg IV ONCE PRN PRN Reason: Shivering Morphine Sulfate (Morphine) 2 mg IV Q10MIN PRN PRN Reason: Pain, Moderate (4-6) Morphine Sulfate (Morphine) 4 mg IV Q4H PRN PRN Reason: Pain , Severe (7-10) Oxycodone/Acetaminophen (Percocet 5/325) 2 tab PO Q6H PRN PRN Reason: Pain, Moderate (4-6) Review of Systems Gastrointestinal: abdominal pain, nausea, vomiting - Vital Signs Vital signs: Vital Signs Temp Resp 97.7 F 18 09/13/17 22:29 09/13/17 22:29 Temp Pulse Resp BP Pulse Ox 97.7 F 18 09/13/17 22:29 09/13/17 22:29 - Physical Exam Breasts: Positive: deferred Cardiovascular: Regular rate Lungs: Positive: Clear to auscultation Genitourinary (Female): Positive: other (bulging membranes) Results Abnormal lab results 09/13/17 Range/Units 23:37 Urine WBC (Auto) 30.0 H (0.0-6.0) /HPF All other labs normal. Assessment and Plan - Patient Problems (1) labor Current Visit: Yes Status: Acute Plan to address problem: proceed with primary (2) bradycardia Current Visit: Yes Status: Acute
--- NOTE | 2017-09-14 02:05 | Procedure Note ---
OB Delivery Note - Delivery Date of Delivery: 09/14/17 Surgeon: KANU JOSEPH Estimated blood loss: other (600ml) - Section Preop diagnosis: nonreassuring FHR tracing, other malpresentation Postop diagnosis: same section procedure: section, vertical Disposition: PACU Complications: none - Infant A at 1 minute: 2 at 5 minutes: 7 Infant Gender: Male
--- NOTE | 2017-09-14 02:07 | Operative Report ---
Operative Report Operative Report: Date of surgery: 09/14/2017 Preoperative diagnosis: labor at 25 a +3 weeks; malpresentation; bulging amniotic membranes; bradycardia Postoperative diagnosis: Same as above Procedure: Classical delivery Surgeon: Isabelle Estrada M.D. Anesthesia: General endotracheal anesthesia Estimated blood loss: 600 mL Findings: Liveborn male infant with Apgars 2 and 7 Indications: 22-year-old at 25+3 weeks who presents with bulging amniotic membranes. Bedside ultrasound revealed evidence of malpresentation. The patient had spontaneous rupture membranes during examination with findings of bradycardia on ultrasound. The patient was noted to be dilated 3 cm on exam and unable to identify presenting parts. Procedure: The patient was taken to the operating room and given general anesthesia without complication. She was prepped and draped in a normal sterile fashion. A Pfannenstiel skin incision was made down to layer the fascia which was nicked in the midline extended laterally with the Bovie cautery. The superior aspect of the rectus fascia was grasped with Amanda clamps x2 and the rectus muscles off sharply. This was done in inferior fashion as well. The rectus muscle midline and peritoneum entered bluntly. An Jay retractor was then inserted. A bladder blade was placed. The vesicouterine peritoneum was then entered sharply with Metzenbaum scissors. A bladder flap was created digitally. A low transverse uterine incision was attempted however the lower uterine segment was not developed. A vertical incision had to be performed that extended into the contractile portion of the uterus. This patient will never be a candidate for vaginal delivery in the future. The placenta presented through the incision. The arm delivered through the incision. Surgical hand was placed in the uterus in order to deliver the infant which was in transverse presentation. The cord was clamped and cut x2 and infant was passed off to pediatrics. The placenta was then manually extracted. The uterus was then exteriorized and cleared of clots and debris. The uterine incision was then closed in a running locked fashion with 0 Vicryl. The posterior cul-de-sac was then copiously irrigated. Interceed was placed over the uterine incision. The uterus was replaced back into the abdomen and pelvis were the gutters were then irrigated. The Jay retractor was then removed. The peritoneum was then reapproximated with 3-0 Vicryl incorporating the rectus muscle. The fascia was then closed with 0 Vicryl in a running fashion. The skin was then reapproximated with 3-0 Monocryl on a Seamus needle subcuticular fashion. Steri-Strips to place across the incision and a Crede procedures performed at the end of the surgery. A pressure dressing was applied to the incision. The surgery productive of a liveborn male infant with Apgars of 2 and 7, the infant weight was not available at the time of the surgery. The patient was taken to the recovery room in stable condition. All sponge laps and needle counts correct x2.
[2017-09-14] MEDS ORDERED: MYLICON PO PRN (02:22)
[2017-09-14] MEDS ORDERED: NARCAN 0.4 MG/1 ML IV PRN (02:22)
[2017-09-14] MEDS ORDERED: TUCKS PAD TP PRN (02:22)
[2017-09-14] MEDS ORDERED: MILK OF MAGNESIA PO PRN (02:22)
[2017-09-14] MEDS ORDERED: LANSINOH TP PRN (02:22)
[2017-09-14] MEDS ORDERED: D5LR 1,000 ML IV SCH (03:00)
[2017-09-14] MEDS ORDERED: PITOCin/NS 20 UNIT/1000ML DRIP 20 UNITS/1,000 ML BAG IV SCH (03:00)
[2017-09-14] MEDS ORDERED: SODIUM CHLORIDE FLUSH SYRINGE 10 ML IV NR (03:00)
[2017-09-14] MEDS: TORADOL IV PRN ×2 (03:33→11:38)
[2017-09-14] MEDS ORDERED: DILAUDID IV PRN ×2 (06:33→06:45)
[2017-09-14 10:24] LABS: HIV-1 Antigen p24 Non React (Non React); HIVR-1/2 Ab Non React (Non React)
[2017-09-14] MEDS ORDERED: REGLAN PO PRN (14:58)
[2017-09-14] MEDS ORDERED: REGLAN IV PRN (14:58)
[2017-09-14] MEDS ORDERED: TRANSDERM-SCOP TD SCH (15:00)
--- NOTE | 2017-09-14 15:01 | Progress Note ---
Assessment and Plan O; VSS AF PP H/H: pending A: POD #1 s/p Classical , malpresentation C/S P: Routine PP orders Subjective - Subjective Date of service: 09/14/17 Patient reports: appetite normal, voiding normally, pain well controlled, flatus , ambulating normally, other (upset about care in L&D) : doing well, in NICU Objective - Vital Signs Latest vital signs: Vital Signs Temp Pulse Resp BP BP Pulse Ox 09/14/17 13:02 98.5 F 63 18 104/57 09/14/17 08:18 98.4 F 61 18 118/63 09/14/17 05:40 98.5 F 69 18 120/67 100 09/14/17 02:49 98.8 F 70 20 123/77 100 09/13/17 22:29 97.7 F 18 Intake and Output 09/14/17 09/14/17 09/14/17 06:59 14:59 22:59 Intake Total 2100 360 Output Total 725 700 Balance 1375 -340 Intake: IV 2000 Oral 360 Intake, Free Water 100 Output: Urine 725 700 Indwelling Catheter 500 700 Void 0 Other: Total, Intake Amount 240 Total, Output Amount 500 700 - Exam Breasts: Present: deferred Abdomen: Present: normal appearance, soft. Absent: distention, tenderness Uterus: Present: normal, firm, fundal height below umbilicus (3 below U, ML). Absent: bogginess, tenderness Extremities: Present: normal Incision: Present: normal, intact, dressed - Labs Labs: Abnormal lab results 09/13/17 Range/Units 23:37 Urine WBC (Auto) 30.0 H (0.0-6.0) /HPF
[2017-09-14 16:26] LABS: Basophils % (Auto) 0.2 % (0.0-1.8); Hematocrit 31.4 % (30.3-42.9); Hemoglobin 10.7 gm/dl (10.1-14.3); Mean Corpuscular HGB Conc 34 % (30-34); Mean Corpuscular Hemoglobin 28 pg (28-32); Mean Corpuscular Volume 80 fl (79-97); Platelet Count 152 K/mm3 (140-440); Red Blood Count 3.91 M/mm3 (3.65-5.03); Red Cell Distribution Width 13.6 % (13.2-15.2); White Blood Count 13.8 K/mm3 (4.5-11.0)
[2017-09-14] MEDS: MOTRIN PO PRN (16:42)
[2017-09-14] MEDS: PERCOCET 5/325 PO PRN (17:49)
[2017-09-15] MEDS: MOTRIN PO PRN ×2 (01:18→22:55)
[2017-09-15] MEDS: PERCOCET 5/325 PO PRN ×5 (01:18→23:57)
--- NOTE | 2017-09-15 09:49 | Progress Note ---
Assessment and Plan O; VSS Af A: Stable POD #2 P" Continue orders Subjective - Subjective Date of service: 09/15/17 Patient reports: appetite normal, voiding normally, pain well controlled, flatus , ambulating normally [place]: doing well, in NICU Objective - Vital Signs Latest vital signs: Vital Signs Temp Pulse Resp BP BP 09/15/17 08:45 18 09/15/17 00:48 20 97/51 09/14/17 16:17 98.3 F 62 18 99/50 09/14/17 13:02 98.5 F 63 18 104/57 Intake and Output 09/14/17 09/15/17 09/15/17 22:59 06:59 14:59 Intake Total 480 Output Total 600 Balance 480 -600 Intake: Oral 480 Output: Urine 600 Void 600 Other: Total, Intake Amount 480 Total, Output Amount 600 - Exam Breasts: Present: deferred Lungs: Present: Normal air movement Abdomen: Present: normal appearance, soft, normal bowel sounds. Absent: distention, tenderness Vulva: both: normal Uterus: Present: normal, firm, fundal height below umbilicus (2 below , U, ML). Absent: bogginess, tenderness Extremities: Present: normal Incision: Present: normal, dry, intact, dressed - Labs Labs: Abnormal lab results 09/14/17 Range/Units 16:07 WBC 13.8 H (4.5-11.0) K/mm3 Lymph % (Auto) 12.0 L (13.4-35.0) % [place] % (Auto) 8.9 H (0.0-7.3) % [place] # 1.2 H (0.0-0.8) K/mm3 Seg Neutrophils % 78.9 H (40.0-70.0) % Seg Neutrophils # 10.9 H (1.8-7.7) K/mm3
[2017-09-16] MEDS: PERCOCET 5/325 PO PRN ×4 (05:18→22:51)
[2017-09-16] MEDS: MOTRIN PO PRN ×2 (05:19→17:45)
--- NOTE | 2017-09-16 10:13 | Progress Note ---
Assessment and Plan pod#2 s/p classical c/sec routine Post op orderes added mag citrate for BM VSS baby in [place] per patient doing well encourage ambulation tolerating diet pain controlled Subjective - Subjective Date of service: 09/16/17 Principal diagnosis: s/p classical c/sec Patient reports: appetite normal, voiding normally, pain well controlled, flatus , ambulating normally : in NICU Objective - Vital Signs Latest vital signs: Vital Signs Temp Pulse Resp BP Pulse Ox 09/16/17 09:00 98.0 F 98 H 18 97/55 09/16/17 00:14 98.6 F 88 18 110/54 09/15/17 17:34 18 09/15/17 16:40 98.4 F 76 18 110/62 100 09/15/17 12:43 18 09/15/17 12:00 97.9 F 81 18 115/66 Intake and Output 09/15/17 09/16/17 09/16/17 23:59 07:59 15:59 Intake Total 360 180 240 Balance 360 180 240 Intake: Oral 240 Intake, Free Water 360 180 Other: Total, Intake Amount 240 # Voids Void 1 1 1 - Exam Breasts: Present: normal Cardiovascular: Present: Regular rate, Normal S1 Lungs: Present: Clear to auscultation, Normal air movement Abdomen: Present: normal appearance, soft, normal bowel sounds. Absent: distention, tenderness, guarding Vulva: both: normal Uterus: Present: normal, firm, bogginess, tenderness, fundal height below umbilicus Extremities: Present: normal. Absent: edema Deep Tendon Reflex Grade: Normal +2 Incision: Present: normal, dry, intact
[2017-09-16] MEDS ORDERED: CITRATE OF MAGNESIA PO ONE (12:00)
[2017-09-17] MEDS: MOTRIN PO PRN ×2 (01:58→10:31)
[2017-09-17] MEDS: PERCOCET 5/325 PO PRN ×3 (04:29→16:36)
--- NOTE | 2017-09-17 08:27 | Progress Note ---
Assessment and Plan - Patient Problems (1) labor Current Visit: Yes Status: Acute Plan to address problem: Will administer milk of magnesia to facilitate a bowel movement Discharge home today (2) bradycardia Current Visit: Yes Status: Acute Subjective - Subjective Date of service: 09/17/17 Principal diagnosis: s/p classical c/sec Interval history: She reports better control of her pain. She is currently tolerating a regular diet. The patient is insistent on having a bowel movement before discharge. She denies any nausea vomiting. Patient reports: appetite normal, voiding normally, pain well controlled : in NICU Objective - Vital Signs Latest vital signs: Vital Signs Temp Pulse Resp BP BP 09/17/17 04:29 18 09/16/17 23:11 98.5 F 20 99/59 09/16/17 22:51 18 09/16/17 17:49 98.0 F 85 18 120/70 09/16/17 17:45 20 09/16/17 10:19 20 09/16/17 09:00 98.0 F 98 H 18 97/55 Intake and Output 09/16/17 09/17/17 09/17/17 22:59 06:59 14:59 Intake Total 720 120 Balance 720 120 Intake: Oral 360 120 Intake, Free Water 360 Other: Total, Intake Amount 120 120 # Voids Void 2 - Exam Uterus: Present: normal, firm
--- NOTE | 2017-09-17 08:29 | Discharge Summary ---
Providers - Providers Date of Admission: 09/14/17 00:20 Date of discharge: 09/17/17 Attending physician: KANU JOSEPH 09/14/17 14:24 Consult to Case Management [CONS] Routine Services Needed at Discharge: Student Assistant Notified:: voice mail Phone number called:: [phone] Was contact made?: No If yes, spoke with:: voice mail Time called:: 14:25 Additional Physician Instructions: mom is positive uds Primary care physician: KANU JOSEPH Hospitalization Reason for admission: labor Delivery: Procedure: section, vertical (classical delivery) Incision: normal, dry complications: none Discharge diagnosis: delivery [place] baby: male Hospital course: The patient was admitted to labor and delivery with active labor and bulging membranes beyond her introitus. The fetus was in malpresentation and the patient was taken emergently for a delivery. Please see operative note for details of surgery. Postoperative course was uncomplicated. Condition at discharge: Good Disposition: DC-01 TO HOME OR SELFCARE - Discharge Diagnoses (1) labor Status: Acute (2) bradycardia Status: Acute Plan - Discharge Medications Prescriptions: Docusate Sodium [Colace] 100 mg PO BID PRN #60 capsule PRN Reason: Constipation Ibuprofen [Motrin] 800 mg PO Q8HR PRN #60 tablet PRN Reason: Pain Oxycodone HCl/Acetaminophen [Percocet 7.5/325 mg] 1 each PO Q6HR PRN #45 tablet PRN Reason: Pain - Provider Discharge Summary Activity: no sex for 6 weeks, no heavy lifting 4 weeks, no strenuous exercise Diet: routine Instructions: routine Additional instructions: [] Smoking cessation referral if applicable(refer to patient education folder for contact #) [] Refer to [facility] Booklet Call your doctor immediately for: * Fever > 100.5 * Heavy vaginal bleeding ( >1 pad per hour) * Severe persistent headache * Shortness of breath * Reddened, hot, painful area to leg or breast * Drainage or odor from incision. * Keep incision clean and dry at all times and follow doctor's instructions regarding bathing/showering Follow-up in 2 weeks for postoperative visit - Follow up plan
[2017-09-17 17:43] VITALS: BP 106/62
== END 2017-09-17 18:25 | disposition home or self-care (01) | DRG 766 ==
LOC: EDSTATUS 20:03 → TRG 20:06 → LD 09-14 00:20 → TRG 09-14 00:20 → OBSVTOIN 09-14 00:20 → OB 09-14 03:07
PROVIDERS: ADMIT Obstetrics & Gynecology; ATTEND Obstetrics & Gynecology
PROC: 10D00Z0 Extraction of Products of Conception, High, Open Approach (ICD-10-PCS; principal; 2017-09-14)
DX: O60.12X0 Preterm labor second trimester with preterm delivery second trimester, not applicable or unspecified (principal); O75.0 Maternal distress during labor and delivery; O76 Abnormality in fetal heart rate and rhythm complicating labor and delivery; O32.8XX0 Maternal care for other malpresentation of fetus, not applicable or unspecified; O99.52 Diseases of the respiratory system complicating childbirth; J45.909 Unspecified asthma, uncomplicated; Z3A.25 25 weeks gestation of pregnancy; Z37.0 Single live birth
CPT/HCPCS: 36415; 59025; 80307; 81001; 85025; 86592; 86706; 86762; 86850; 86900; 86901; 87806; 88305; 99211; G0463; J0330; J0690; J1170; J1885; J2250; J2270; J2370; J2590; J2704; J2765; J3010; J7120; J7121

== ENCOUNTER 2018-04-26 18:46 | Emergency (ER) | payer OTHER, MEDICAID ==
[2018-04-26 19:05] VITALS: BP 96/64
[2018-04-26] MEDS ORDERED: NACL 0.9% 1000 ML 1,000 ML IV ONE (19:05)
[2018-04-26] MEDS ORDERED: REGLAN ONE (19:06)
[2018-04-26] MEDS ORDERED: REGLAN IV ONE (19:11)
== END 2018-04-26 20:25 | disposition left against medical advice (07) ==
LOC: ED 18:46
DX: R11.2 Nausea with vomiting, unspecified (principal); Z53.21 Procedure and treatment not carried out due to patient leaving prior to being seen by health care provider
CPT/HCPCS: J2765

== ENCOUNTER 2018-04-27 15:55 | Emergency (ER) | payer OTHER, MEDICAID ==
[2018-04-27] MEDS ORDERED: PEPCID IV ONE (16:26)
[2018-04-27] MEDS ORDERED: NACL 0.9% 1000 ML 1,000 ML IV ONE ×2 (16:26→19:02)
[2018-04-27] MEDS ORDERED: TORADOL IV ONE (16:26)
[2018-04-27] MEDS ORDERED: BENTYL IM ONE (16:26)
[2018-04-27] MEDS ORDERED: REGLAN IV ONE (16:27)
[2018-04-27 18:09] LABS: Basophils % (Auto) 0.6 % (0.0-1.8); Eosinophils % (Auto) 0.1 % (0.0-4.3); Hematocrit 46.8 % (30.3-42.9); Lymphocytes # (Auto) 2.5 K/mm3 (1.2-5.4); Mean Corpuscular HGB Conc 34 % (30-34); Mean Corpuscular Hemoglobin 28 pg (28-32); Mean Corpuscular Volume 81 fl (79-97); Monocytes # (Auto) 0.7 K/mm3 (0.0-0.8); Monocytes % (Auto) 8.8 % (0.0-7.3); Platelet Count 200 K/mm3 (140-440); Red Cell Distribution Width 16.8 % (13.2-15.2)
[2018-04-27 18:10] LABS: Bilirubin,Urine NEG (Negative); Blood,Urine LG (Negative); Color,Urine Straw (Yellow); Mucus,Urine FEW /HPF; Protein,Urine <15 mg/dL mg/dL (Negative); Urobilinogen,Urine < 2.0 mg/dL (<2.0)
--- NOTE | 2018-04-27 18:12 | Emergency Department Report ---
ED N/V/D HPI - General Chief complaint: Nausea/Vomiting/Diarrhea Stated complaint: NAUSEA/VOMITE 4 DAYS Time Seen by Provider: 04/27/18 16:24 Source: patient Mode of arrival: Wheelchair Limitations: No Limitations - History of Present Illness Initial comments: Patient is a 22-year-old Vietnamese female who is presenting with nausea vomiting diarrhea for the past 4 days. Patient states she is unable to keep anything down and is feeling quite weak. Patient denies any fevers cough cold congestion at this time. Patient states that she has diffuse abdominal discomfort left greater than right. Patient states is sharp crampy pain since 8 out of 10 in severity. - Related Data Home Medications Medication Instructions Recorded Confirmed Last Taken Pnv No.95/Ferrous Fum/Folic AC 1 each PO QDAY 12/07/15 01/20/18 Unknown [ Caplet] Previous Rx's Medication Instructions Recorded Last Taken Type HYDROcodone/APAP 5-325 [[place] 1 each PO Q6HR PRN #30 tablet 04/22/16 09/13/17 Rx 5/325] Ibuprofen [Motrin] 800 mg PO Q8HR PRN #60 tablet 04/22/16 09/14/17 Rx Docusate Sodium [Colace] 100 mg PO BID PRN #60 capsule 09/17/17 Unknown Rx Ibuprofen [Motrin] 800 mg PO Q8HR PRN #60 tablet 09/17/17 Unknown Rx Oxycodone HCl/Acetaminophen 1 each PO Q6HR PRN #45 tablet 09/17/17 Unknown Rx [Percocet 7.5/325 mg] Famotidine [Pepcid] 20 mg PO BID #60 tablet 01/20/18 Unknown Rx Metoclopramide [Reglan] 10 mg PO ACHS #60 tablet 01/20/18 Unknown Rx oxyCODONE /ACETAMINOPHEN [Percocet 1 tab PO Q6H PRN #20 tablet 01/20/18 Unknown Rx 5/325 mg] Dicyclomine [Bentyl] 10 mg PO QID 3 Days capsule 04/27/18 Unknown Rx Metoclopramide [Reglan] 10 mg PO TID PRN #12 tab 04/27/18 Unknown Rx traMADol [Ultram] 50 mg PO Q6HR PRN #12 tablet 04/27/18 Unknown Rx Allergies Allergy/AdvReac Type Severity Reaction Status Date / Time ondansetron HCl Allergy Vomiting Verified 03/23/15 15:49 [From Zofran (as hydrochloride)] pineapple [Pineapple] Allergy Itching Verified 03/23/15 15:49 ED Review of Systems ROS: Stated complaint: NAUSEA/VOMITE 4 DAYS Other details as noted in HPI Comment: All other systems reviewed and negative ED Past Medical Hx - Past Medical History Hx Hypertension: No Hx Congestive Heart Failure: No Hx Diabetes: No Hx Deep Vein Thrombosis: No Hx Renal Disease: No Hx Sickle Cell Disease: No Hx Seizures: No Hx Psychiatric Treatment: Yes (bipolar and schizo, off meds) Hx Asthma: Yes Hx COPD: No Hx HIV: No - Surgical History Past Surgical History?: Yes Additional Surgical History: c sectX 1 - Social History Smoking Status: Current Every Day Smoker Substance Use Type: None - Medications Home Medications: Home Medications Medication Instructions Recorded Confirmed Last Taken Type Pnv No.95/Ferrous Fum/Folic AC 1 each PO QDAY 12/07/15 01/20/18 Unknown History [ Caplet] HYDROcodone/APAP 5-325 [[place] 1 each PO Q6HR PRN #30 tablet 04/22/16 01/20/18 Rx 5/325] Ibuprofen [Motrin] 800 mg PO Q8HR PRN #60 tablet 04/22/16 01/20/18 09/14/17 Rx Docusate Sodium [Colace] 100 mg PO BID PRN #60 capsule 09/17/17 01/20/18 Unknown Rx Ibuprofen [Motrin] 800 mg PO Q8HR PRN #60 tablet 09/17/17 01/20/18 Unknown Rx Oxycodone HCl/Acetaminophen 1 each PO Q6HR PRN #45 tablet 09/17/17 01/20/18 Unknown Rx [Percocet 7.5/325 mg] Famotidine [Pepcid] 20 mg PO BID #60 tablet 01/20/18 Unknown Rx Metoclopramide [Reglan] 10 mg PO ACHS #60 tablet 01/20/18 Unknown Rx oxyCODONE /ACETAMINOPHEN [Percocet 1 tab PO Q6H PRN #20 tablet 01/20/18 Unknown Rx 5/325 mg] Dicyclomine [Bentyl] 10 mg PO QID 3 Days capsule 04/27/18 Unknown Rx Metoclopramide [Reglan] 10 mg PO TID PRN #12 tab 04/27/18 Unknown Rx traMADol [Ultram] 50 mg PO Q6HR PRN #12 tablet 04/27/18 Unknown Rx ED Physical Exam - General Limitations: No Limitations General appearance: alert, in distress - Head Head exam: Present: atraumatic, normocephalic - Eye Eye exam: Present: normal appearance - ENT ENT exam: Present: mucous membranes moist - Neck Neck exam: Present: normal inspection - Respiratory Respiratory exam: Present: normal lung sounds bilaterally. Absent: respiratory distress, wheezes, rales, rhonchi, stridor - Cardiovascular Cardiovascular Exam: Present: regular rate, normal rhythm. Absent: systolic murmur, diastolic murmur, rubs, gallop - GI/Abdominal GI/Abdominal exam: Present: soft, tenderness, normal bowel sounds. Absent: distended, guarding, rebound, rigid - Extremities Exam Extremities exam: Present: normal inspection - Back Exam Back exam: Present: normal inspection - Neurological Exam Neurological exam: Present: alert, oriented X3 - Psychiatric Psychiatric exam: Present: normal affect, normal mood - Skin Skin exam: Present: warm, dry, intact, normal color. Absent: rash ED Course Vital Signs 04/27/18 04/27/18 04/27/18 16:08 16:16 16:30 Temperature 98.2 F Pulse Rate 61 78 Respiratory 16 20 Rate Blood Pressure 89/48 133/92 133/92 O2 Sat by Pulse 98 100 Oximetry 04/27/18 04/27/18 04/27/18 16:52 17:00 18:00 Temperature 99.1 F Pulse Rate 51 L 49 L Respiratory 18 13 Rate Blood Pressure 127/95 128/60 O2 Sat by Pulse 100 99 Oximetry 04/27/18 19:00 Temperature Pulse Rate 49 L Respiratory 15 Rate Blood Pressure 126/78 O2 Sat by Pulse 100 Oximetry ED Medical Decision Making - Lab Data Result diagrams: 04/27/18 17:45 04/27/18 17:45 Lab Results 04/27/18 04/27/18 04/27/18 Range/Units 17:45 17:45 17:45 WBC 7.9 (4.5-11.0) K/mm3 RBC 5.80 H (3.65-5.03) M/mm3 Hgb 16.0 H (10.1-14.3) gm/dl Hct 46.8 H (30.3-42.9) % MCV 81 (79-97) fl MCH 28 (28-32) pg MCHC 34 (30-34) % RDW 16.8 H (13.2-15.2) % Plt Count 200 (140-440) K/mm3 Lymph % (Auto) 32.0 (13.4-35.0) % [place] % (Auto) 8.8 H (0.0-7.3) % Eos % (Auto) 0.1 (0.0-4.3) % Baso % (Auto) 0.6 (0.0-1.8) % Lymph # 2.5 (1.2-5.4) K/mm3 [place] # 0.7 (0.0-0.8) K/mm3 Eos # 0.0 (0.0-0.4) K/mm3 Baso # 0.0 (0.0-0.1) K/mm3 Seg Neutrophils % 58.5 (40.0-70.0) % Seg Neutrophils # 4.6 (1.8-7.7) K/mm3 Sodium 138 (137-145) mmol/L Potassium 3.6 (3.6-5.0) mmol/L Chloride 95.8 L (98-107) mmol/L Carbon Dioxide 21 L (22-30) mmol/L Anion Gap 25 mmol/L BUN 16 (7-17) mg/dL Creatinine 0.7 (0.7-1.2) mg/dL Estimated GFR > 60 ml/min BUN/Creatinine Ratio 23 % Glucose 79 (65-100) mg/dL Calcium 9.1 (8.4-10.2) mg/dL Total Bilirubin 2.30 H (0.1-1.2) mg/dL AST 34 (5-40) units/L ALT 22 (7-56) units/L Alkaline Phosphatase 70 (35-129) units/L Total Protein 7.7 (6.3-8.2) g/dL Albumin 4.9 (3.9-5) g/dL Albumin/Globulin Ratio 1.8 % HCG, Qual Negative (Negative) Urine Color (Yellow) Urine Turbidity (Clear) Urine pH (5.0-7.0) Ur Specific [place] (1.003-1.030) Urine Protein (Negative) mg/dL Urine Glucose (UA) (Negative) mg/dL Urine Ketones (Negative) mg/dL Urine Blood (Negative) Urine Nitrite (Negative) Urine Bilirubin (Negative) Urine Urobilinogen (<2.0) mg/dL Ur Leukocyte Esterase (Negative) Urine WBC (Auto) (0.0-6.0) /HPF Urine RBC (Auto) (0.0-6.0) /HPF U Epithel Cells (Auto) (0-13.0) /HPF Urine Mucus /HPF 04/27/18 Range/Units 17:52 WBC (4.5-11.0) K/mm3 RBC (3.65-5.03) M/mm3 Hgb (10.1-14.3) gm/dl Hct (30.3-42.9) % MCV (79-97) fl MCH (28-32) pg MCHC (30-34) % RDW (13.2-15.2) % Plt Count (140-440) K/mm3 Lymph % (Auto) (13.4-35.0) % [place] % (Auto) (0.0-7.3) % Eos % (Auto) (0.0-4.3) % Baso % (Auto) (0.0-1.8) % Lymph # (1.2-5.4) K/mm3 [place] # (0.0-0.8) K/mm3 Eos # (0.0-0.4) K/mm3 Baso # (0.0-0.1) K/mm3 Seg Neutrophils % (40.0-70.0) % Seg Neutrophils # (1.8-7.7) K/mm3 Sodium (137-145) mmol/L Potassium (3.6-5.0) mmol/L Chloride (98-107) mmol/L Carbon Dioxide (22-30) mmol/L Anion Gap mmol/L BUN (7-17) mg/dL Creatinine (0.7-1.2) mg/dL Estimated GFR ml/min BUN/Creatinine Ratio % Glucose (65-100) mg/dL Calcium (8.4-10.2) mg/dL Total Bilirubin (0.1-1.2) mg/dL AST (5-40) units/L ALT (7-56) units/L Alkaline Phosphatase (35-129) units/L Total Protein (6.3-8.2) g/dL Albumin (3.9-5) g/dL Albumin/Globulin Ratio % HCG, Qual (Negative) Urine Color Straw (Yellow) Urine Turbidity Clear (Clear) Urine pH 7.0 (5.0-7.0) Ur Specific [place] 1.006 (1.003-1.030) Urine Protein <15 mg/dl (Negative) mg/dL Urine Glucose (UA) Neg (Negative) mg/dL Urine Ketones Tr (Negative) mg/dL Urine Blood Lg (Negative) Urine Nitrite Neg (Negative) Urine Bilirubin Neg (Negative) Urine Urobilinogen < 2.0 (<2.0) mg/dL Ur Leukocyte Esterase Tr (Negative) Urine WBC (Auto) 0.0 (0.0-6.0) /HPF Urine RBC (Auto) 14.0 (0.0-6.0) /HPF U Epithel Cells (Auto) 1.0 (0-13.0) /HPF Urine Mucus Few /HPF - Radiology Data CT abdomen and pelvis with IV contrast shows no acute process - Medical Decision Making Patient was hydrated minutes for abdominal pain as well as nausea. Her nausea is improved. Patient will be discharged home with meds for symptomatic relief Critical care attestation.: If time is entered above; I have spent that time in minutes in the direct care of this critically ill patient, excluding procedure time. ED Disposition Clinical Impression: Gastroenteritis Disposition: DC-01 TO HOME OR SELFCARE Is pt being admited?: No Does the pt Need Aspirin: No Condition: Stable Instructions: Gastroenteritis (ED) Referrals: PRIMARY CARE, [Primary Care Provider] - 3-5 Days Time of Disposition: 19:42 (after IV fluids finish)
[2018-04-27 18:29] LABS: Alanine Aminotransferase 22 units/L (7-56); Albumin 4.9 g/dL (3.9-5); BUN/Creatinine Ratio 23; Blood Urea Nitrogen 16 mg/dL (7-17); Calcium 9.1 mg/dL (8.4-10.2); Hemolysis Index 11
--- NOTE | 2018-04-27 19:30 | Cat Scan Report ---
FINAL REPORT EXAM: CT ABDOMEN PELVIS W CON HISTORY: NVD TECHNIQUE: CT abdomen and pelvis with intravenous contrast PRIORS: None. FINDINGS: No acute abnormality identified in the lung bases. No focal abnormality identified within the liver parenchyma. The spleen demonstrates normal size and attenuation. No pancreatic abnormalities seen. The kidneys demonstrate symmetric contrast enhancement. No evidence of hydronephrosis. The adrenal glands are unremarkable Abdominal aorta is normal in caliber. No pathologically enlarged lymph nodes are identified. No signs of free fluid or free air No evidence of small bowel dilatation. Colon is nondistended. No pericolonic inflammatory change. The appendix is identified and is unremarkable. Urinary bladder is unremarkable. IMPRESSION: No acute abnormalities identified in the abdomen or pelvis
[2018-04-27 19:34] VITALS: BP 126/78
[2018-04-27] MEDS ORDERED: DILAUDID IV ONE (19:44)
== END 2018-04-27 21:08 | disposition home or self-care (01) ==
LOC: ED 15:55
DX: K52.9 Noninfective gastroenteritis and colitis, unspecified (principal); F31.9 Bipolar disorder, unspecified; F20.9 Schizophrenia, unspecified; J45.909 Unspecified asthma, uncomplicated; F17.200 Nicotine dependence, unspecified, uncomplicated; Z91.018 Allergy to other foods; Z88.8 Allergy status to other drugs, medicaments and biological substances
CPT/HCPCS: 36415; 74177; 80053; 81001; 84703; 85025; 96361; 96372; 96374; 96375; 99284; J0500; J1170; J1885; J2765; J7030; Q9967

== ENCOUNTER 2018-05-28 14:27 | Emergency (ER) | payer OTHER, MEDICAID ==
[2018-05-28] MEDS ORDERED: NACL 0.9% 1000 ML 1,000 ML IV ONE ×2 (16:22→18:05)
[2018-05-28] MEDS ORDERED: REGLAN IV ONE (16:23)
--- NOTE | 2018-05-28 16:27 | Emergency Department Report ---
<THADDEUS AQUINO JOSE - Last Filed: 05/28/18 21:48> ED Abdominal Pain HPI - General Chief Complaint: Abdominal Pain Stated Complaint: THROWING UP 3 DAYS/WEAK Time Seen by Provider: 05/28/18 16:00 - Related Data Home Medications Medication Instructions Recorded Confirmed Last Taken Pnv No.95/Ferrous Fum/Folic AC 1 each PO QDAY 12/07/15 01/20/18 Unknown [ Caplet] Previous Rx's Medication Instructions Recorded Last Taken Type HYDROcodone/APAP 5-325 [[place] 1 each PO Q6HR PRN #30 tablet 04/22/16 09/13/17 Rx 5/325] Ibuprofen [Motrin] 800 mg PO Q8HR PRN #60 tablet 04/22/16 09/14/17 Rx Docusate Sodium [Colace] 100 mg PO BID PRN #60 capsule 09/17/17 Unknown Rx Ibuprofen [Motrin] 800 mg PO Q8HR PRN #60 tablet 09/17/17 Unknown Rx Oxycodone HCl/Acetaminophen 1 each PO Q6HR PRN #45 tablet 09/17/17 Unknown Rx [Percocet 7.5/325 mg] Famotidine [Pepcid] 20 mg PO BID #60 tablet 01/20/18 Unknown Rx Metoclopramide [Reglan] 10 mg PO ACHS #60 tablet 01/20/18 Unknown Rx oxyCODONE /ACETAMINOPHEN [Percocet 1 tab PO Q6H PRN #20 tablet 01/20/18 Unknown Rx 5/325 mg] Dicyclomine [Bentyl] 10 mg PO QID 3 Days capsule 04/27/18 Unknown Rx Metoclopramide [Reglan] 10 mg PO TID PRN #12 tab 04/27/18 Unknown Rx traMADol [Ultram] 50 mg PO Q6HR PRN #12 tablet 04/27/18 Unknown Rx Promethazine [Phenergan TAB] 25 mg PO Q8HR PRN #9 tab 05/28/18 Unknown Rx Allergies Allergy/AdvReac Type Severity Reaction Status Date / Time ondansetron HCl Allergy Vomiting Verified 03/23/15 15:49 [From Zofran (as hydrochloride)] pineapple [Pineapple] Allergy Itching Verified 03/23/15 15:49 ED Review of Systems ROS: Stated complaint: THROWING UP 3 DAYS/WEAK Other details as noted in HPI ED Past Medical Hx - Medications Home Medications: Home Medications Medication Instructions Recorded Confirmed Last Taken Type Pnv No.95/Ferrous Fum/Folic AC 1 each PO QDAY 12/07/15 01/20/18 Unknown History [ Caplet] HYDROcodone/APAP 5-325 [[place] 1 each PO Q6HR PRN #30 tablet 04/22/16 01/20/18 Rx 5/325] Ibuprofen [Motrin] 800 mg PO Q8HR PRN #60 tablet 04/22/16 01/20/18 09/14/17 Rx Docusate Sodium [Colace] 100 mg PO BID PRN #60 capsule 09/17/17 01/20/18 Unknown Rx Ibuprofen [Motrin] 800 mg PO Q8HR PRN #60 tablet 09/17/17 01/20/18 Unknown Rx Oxycodone HCl/Acetaminophen 1 each PO Q6HR PRN #45 tablet 09/17/17 01/20/18 Unknown Rx [Percocet 7.5/325 mg] Famotidine [Pepcid] 20 mg PO BID #60 tablet 01/20/18 Unknown Rx Metoclopramide [Reglan] 10 mg PO ACHS #60 tablet 01/20/18 Unknown Rx oxyCODONE /ACETAMINOPHEN [Percocet 1 tab PO Q6H PRN #20 tablet 01/20/18 Unknown Rx 5/325 mg] Dicyclomine [Bentyl] 10 mg PO QID 3 Days capsule 04/27/18 Unknown Rx Metoclopramide [Reglan] 10 mg PO TID PRN #12 tab 04/27/18 Unknown Rx traMADol [Ultram] 50 mg PO Q6HR PRN #12 tablet 04/27/18 Unknown Rx Promethazine [Phenergan TAB] 25 mg PO Q8HR PRN #9 tab 05/28/18 Unknown Rx ED Course Vital Signs 05/28/18 05/28/18 05/28/18 14:32 20:20 21:50 Temperature 98.2 F Pulse Rate 58 L 55 L 51 L Respiratory 20 16 16 Rate Blood Pressure 156/93 Blood Pressure 106/49 [Right] O2 Sat by Pulse 100 100 99 Oximetry ED Medical Decision Making - Lab Data Result diagrams: 05/28/18 16:50 05/28/18 16:50 - Radiology Data Radiology results: report reviewed, image reviewed FINAL REPORT EXAM: CT ABDOMEN PELVIS W CON HISTORY: abdominal pain TECHNIQUE: Standard enhanced CT of the abdomen and pelvis. Coronal and sagittal reconstruction was also performed. Delayed imaging through the abdomen pelvis was also obtained. Contrast: 100 mL Omnipaque 300 given IV. PRIORS: CT a/P 04/27/2018 FINDINGS: Within the abdomen, the liver, spleen, pancreas, gallbladder, adrenal glands, and kidneys are unremarkable. No evidence for retroperitoneal or pelvic lymphadenopathy is seen. There is a relative paucity of peritoneal fat bowel loops. The bowel loops have normal caliber. No soft tissue mass, fluid collection, inflammatory change, or free air is seen within the abdomen or pelvis. The appendix is normal. Within the pelvis, the bladder is unremarkable. The uterus is normal. There is a 1.3 x 1.5 cm involuting cyst in the right ovary. Small amount of nonspecific free fluid around the right ovary may be consistent with recent cyst rupture. No evidence for mass or lymphadenopathy is seen in the pelvis. Images through the upper abdomen include the lung bases which are expanded and clear. Bony structures show no focal abnormalities and are intact. IMPRESSION: Probable involuting or recently ruptured right ovarian cyst with a small amount of surrounding fluid in the right adnexa. - Medical Decision Making Patient received from Dr. Marek Fischer in stable condition, awaiting CT results. CT of abdomen and pelvis dictated by radiologist report reviewed by myself. Start Phenergan for nausea or vomiting. Patient given copy of CT report and instructed to follow-up with [facility] for continuance of care. Patient states she is feeling much better. Patient started vomiting prior to discharge. Given Phenergan 25 mg by mouth once while in ER. Patient discharged home stable. Critical care attestation.: If time is entered above; I have spent that time in minutes in the direct care of this critically ill patient, excluding procedure time. ED Disposition Clinical Impression: Ruptured ovarian cyst, Nausea and vomiting in adult, Dehydration Abdominal pain Qualifiers: Abdominal location: generalized Qualified Code(s): R10.84 - Generalized abdominal pain Disposition: - TO HOME OR SELFCARE Is pt being admited?: No Does the pt Need Aspirin: No Condition: Stable Instructions: Abdominal Pain (ED) Additional Instructions: Follow-up with [facility] in 3-5 days for continuance of care. Prescriptions: Promethazine [Phenergan TAB] 25 mg PO Q8HR PRN #9 tab PRN Reason: Nausea Referrals: [facility] [Provider Group] - 3-5 Days [facility] [Provider Group] - 3-5 Days Forms: Work/School Release Form(ED) Time of Disposition: 20:12 Print Language: SPANISH <PAWAN GARCIAAbdiel - Last Filed: 05/29/18 09:17> ED Abdominal Pain HPI - General Source: patient Mode of arrival: Wheelchair Limitations: No Limitations - History of Present Illness Initial Comments: Recent is 22 years old female with history of asthma. Patient presented to the ER complaining of abdominal pain crampy in nature associated with nausea and vomiting and watery diarrhea. Patient stated that she is unable to keep anything down. She stated that she pain this is most likely due to food poisoning. Patient stated that she ate a sausage 3 days ago and soon after she started having the symptoms. Patient denied any chest pain or shortness of breath. MD Complaint: abdominal pain -: days(s) Location: diffuse Radiation: none Migration to: no migration Severity: moderate Quality: cramping ED Review of Systems Comment: All other systems reviewed and negative Constitutional: denies: chills, fever Respiratory: denies: cough, orthopnea, shortness of breath, SOB with exertion, SOB at rest, wheezing Cardiovascular: denies: chest pain, palpitations Gastrointestinal: abdominal pain, nausea, vomiting, diarrhea. denies: constipation, hematemesis, melena, hematochezia Genitourinary: denies: urgency, dysuria, frequency, hematuria, discharge Neurological: denies: headache, weakness, numbness, paresthesias, confusion, abnormal gait ED Past Medical Hx - Past Medical History Hx Hypertension: No Hx Congestive Heart Failure: No Hx Diabetes: No Hx Deep Vein Thrombosis: No Hx Renal Disease: No Hx Sickle Cell Disease: No Hx Seizures: No Hx Psychiatric Treatment: Yes (bipolar and schizo) Hx Asthma: Yes Hx COPD: No Hx HIV: No - Surgical History Past Surgical History?: Yes Additional Surgical History: c sectX 1 - Social History Smoking Status: Current Every Day Smoker Substance Use Type: Marijuana ED Physical Exam - General Limitations: No Limitations General appearance: alert, other (patient is actively vomiting) - Head Head exam: Present: atraumatic, normocephalic, normal inspection - Eye Eye exam: Present: normal appearance - ENT ENT exam: Present: normal exam, normal orophraynx, mucous membranes dry - Neck Neck exam: Present: normal inspection, full ROM. Absent: tenderness, meningismus, lymphadenopathy, thyromegaly - Respiratory Respiratory exam: Present: normal lung sounds bilaterally. Absent: respiratory distress, wheezes, rales, rhonchi, stridor, chest wall tenderness, accessory muscle use, decreased breath sounds, prolonged expiratory - Cardiovascular Cardiovascular Exam: Present: regular rate, normal rhythm, normal heart sounds - GI/Abdominal GI/Abdominal exam: Present: soft, normal bowel sounds. Absent: distended, tenderness, guarding, rebound, rigid, organomegaly, mass, bruit, pulsatile mass , hernia - Extremities Exam Extremities exam: Present: normal inspection, full ROM, normal capillary refill - Back Exam Back exam: Present: normal inspection, full ROM. Absent: tenderness, CVA tenderness (R), CVA tenderness (L), muscle spasm, paraspinal tenderness, vertebral tenderness, rash noted - Neurological Exam Neurological exam: Present: alert, oriented X3, CN II-XII intact, normal gait, reflexes normal - Skin Skin exam: Present: warm, dry, intact, normal color ED Medical Decision Making - Lab Data Result diagrams: 05/28/18 16:50 05/28/18 16:50 ED Disposition Is pt being admited?: No
[2018-05-28 17:31] LABS: Alanine Aminotransferase 27 units/L (7-56); Albumin 5.5 g/dL (3.9-5); BUN/Creatinine Ratio 42; Blood Urea Nitrogen 21 mg/dL (7-17); Hemolysis Index 59
[2018-05-28 17:49] LABS: Bilirubin,Direct 0.3 mg/dL (0-0.2); Lipase 23 units/L (13-60)
[2018-05-28 18:04] LABS: Hemoglobin 16.8 gm/dl (10.1-14.3); Mean Corpuscular HGB Conc 34 % (30-34); Mean Corpuscular Hemoglobin 27 pg (28-32); Mean Corpuscular Volume 79 fl (79-97); Platelet Count 226 K/mm3 (140-440); Red Blood Count 6.23 M/mm3 (3.65-5.03); Red Cell Distribution Width 15.9 % (13.2-15.2)
--- NOTE | 2018-05-28 19:44 | Cat Scan Report ---
FINAL REPORT EXAM: CT ABDOMEN PELVIS W CON HISTORY: abdominal pain TECHNIQUE: Standard enhanced CT of the abdomen and pelvis. Coronal and sagittal reconstruction was also performed. Delayed imaging through the abdomen pelvis was also obtained. Contrast: 100 mL Omnipaque 300 given IV. PRIORS: CT a/P 04/27/2018 FINDINGS: Within the abdomen, the liver, spleen, pancreas, gallbladder, adrenal glands, and kidneys are unremarkable. No evidence for retroperitoneal or pelvic lymphadenopathy is seen. There is a relative paucity of peritoneal fat bowel loops. The bowel loops have normal caliber. No soft tissue mass, fluid collection, inflammatory change, or free air is seen within the abdomen or pelvis. The appendix is normal. Within the pelvis, the bladder is unremarkable. The uterus is normal. There is a 1.3 x 1.5 cm involuting cyst in the right ovary. Small amount of nonspecific free fluid around the right ovary may be consistent with recent cyst rupture. No evidence for mass or lymphadenopathy is seen in the pelvis. Images through the upper abdomen include the lung bases which are expanded and clear. Bony structures show no focal abnormalities and are intact. IMPRESSION: Probable involuting or recently ruptured right ovarian cyst with a small amount of surrounding fluid in the right adnexa.
[2018-05-28] MEDS ORDERED: MOTRIN PO ONE (20:17)
[2018-05-28 20:21] VITALS: BP 106/49
[2018-05-28 20:43] LABS: Bilirubin,Urine NEG (Negative); Blood,Urine NEG (Negative); Color,Urine Yellow (Yellow); Protein,Urine <15 mg/dL mg/dL (Negative)
[2018-05-28] MEDS ORDERED: PHENERGAN PO ONE ×2 (21:47)
[2018-05-28] MEDS ORDERED: PHENERGAN ONE (21:51)
== END 2018-05-28 21:50 | disposition home or self-care (01) ==
LOC: ED 14:27
DX: N83.209 Unspecified ovarian cyst, unspecified side (principal); E86.0 Dehydration; J45.909 Unspecified asthma, uncomplicated; F31.9 Bipolar disorder, unspecified; F20.9 Schizophrenia, unspecified; F17.200 Nicotine dependence, unspecified, uncomplicated; Z88.8 Allergy status to other drugs, medicaments and biological substances; Z91.018 Allergy to other foods
CPT/HCPCS: 36415; 74177; 80048; 80074; 81001; 83690; 84703; 85025; 96361; 96374; 99284; J2765; J7030; Q9967; Q0169

== ENCOUNTER 2019-02-09 16:58 | Emergency (ER) | payer OTHER, MEDICAID ==
[2019-02-09] MEDS ORDERED: TYLENOL PO ONE (19:51)
[2019-02-09 20:53] LABS: HCG Qualitative,Urine Negative (Negative)
[2019-02-09 20:57] LABS: Bilirubin,Urine NEG (Negative); Blood,Urine NEG (Negative); Color,Urine Yellow (Yellow); Mucus,Urine 2+ /HPF
[2019-02-09] MEDS ORDERED: IBUPROFEN PO ONE (21:59)
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
[2019-02-10 02:14] VITALS: BP 107/60
== END 2019-02-09 23:51 | disposition home or self-care (01) ==
LOC: ED 16:58
DX: M62.830 Muscle spasm of back (principal); M54.2 Cervicalgia; F17.200 Nicotine dependence, unspecified, uncomplicated; J45.909 Unspecified asthma, uncomplicated; Z88.8 Allergy status to other drugs, medicaments and biological substances; Z91.018 Allergy to other foods; V89.2XXA Person injured in unspecified motor-vehicle accident, traffic, initial encounter; Y93.89 Activity, other specified; Y92.488 Other paved roadways as the place of occurrence of the external cause; Y99.8 Other external cause status
CPT/HCPCS: 72125; 72131; 81001; 81025; 99284

== ENCOUNTER 2019-04-16 13:54 | Emergency (ER) | payer OTHER, MEDICAID ==
--- NOTE | 2019-04-16 14:08 | Event Note ---
ED Screening Note ED Screening Note: pt presents with N//V/D since three days ago generalized weakness no sick contacts no recent abx states she has been drinking faucet water states that she had cabbage and began feeling sick after +urinary frequency LNMP 3rd week of february PMHx asthma allergy: zofran +tobacco non drinker no drug use This initial assessment/diagnostic orders/clinical plan/treatment(s) is/are subject to change based on patients health status, clinical progression and re- assessment by fellow clinical providers in the ED. Further treatment and workup at subsequent clinical providers discretion. Patient/guardian urged not to elope from the ED as their condition may be serious if not clinically assessed and m anaged. Initial orders include: labs, UA, urine preg
[2019-04-16 15:41] LABS: Basophils % (Auto) 0.6 % (0.0-1.8); Eosinophils % (Auto) 0.1 % (0.0-4.3); Hematocrit 47.1 % (30.3-42.9); Hemoglobin 16.3 gm/dl (10.1-14.3); Lymphocytes # (Auto) 2.1 K/mm3 (1.2-5.4); Lymphocytes % (Auto) 27.8 % (13.4-35.0); Mean Corpuscular HGB Conc 35 % (30-34); Mean Corpuscular Hemoglobin 28 pg (28-32); Mean Corpuscular Volume 80 fl (79-97); Monocytes # (Auto) 0.6 K/mm3 (0.0-0.8); Monocytes % (Auto) 7.1 % (0.0-7.3); Platelet Count 227 K/mm3 (140-440); Red Blood Count 5.91 M/mm3 (3.65-5.03); Red Cell Distribution Width 15.5 % (13.2-15.2)
[2019-04-16 15:59] LABS: Alanine Aminotransferase 31 units/L (7-56); Albumin 5.5 g/dL (3.9-5); BUN/Creatinine Ratio 29; Blood Urea Nitrogen 20 mg/dL (7-17); Calcium 10.1 mg/dL (8.4-10.2); Hemolysis Index 12; Lipase 27 units/L (13-60)
[2019-04-16 17:27] VITALS: BP 114/75
[2019-04-16 17:42] LABS: Bilirubin,Urine NEG (Negative); Blood,Urine MOD (Negative); Color,Urine Yellow (Yellow); Mucus,Urine 3+ /HPF
[2019-04-16 18:01] LABS: HCG Qualitative,Urine Negative (Negative)
[2019-04-16] MEDS ORDERED: NACL 0.9% 1000 ML 1,000 ML IV ONE (18:01)
[2019-04-16] MEDS ORDERED: MORPHINE IV ONE (18:01)
[2019-04-16] MEDS ORDERED: REGLAN IV ONE (18:02)
--- NOTE | 2019-04-16 18:12 | Emergency Department Report ---
ED Abdominal Pain HPI - General Chief Complaint: Abdominal Pain Stated Complaint: VOMITING Time Seen by Provider: 04/16/19 14:06 Source: patient Mode of arrival: Ambulatory Limitations: No Limitations - History of Present Illness Initial Comments: This is a 23-year-old [place] female who presents to the emergency room with abdominal pain and nausea and vomiting since Saturday. Past medical history of asthma and bipolar schizo effective disorder. Patient reports symptoms started with diarrhea which is now resolved. Patient states she is unable to hold anything down. She also reports weakness with ambulating. Her last menstrual period was 03/19/2019, A0. She denies vaginal bleeding, vaginal discharge, dysuria, urinary frequency, urgency, fever or chills. MD Complaint: abdominal pain Onset/Timin -: days(s) Location: diffuse Radiation: none Migration to: no migration Severity: severe Severity scale (0 -10): 9 Quality: stabbing Consistency: constant Improves With: nothing Worsens With: eating, vomiting Associated Symptoms: nausea, vomiting. denies: diarrhea, fever, chills, constipation, dysuria, hematemesis, hematochezia, melena, hematuria - Related Data LMP Date: 03/19/19 Home Medications Medication Instructions Recorded Confirmed Last Taken Pnv No.95/Ferrous Fum/Folic AC 1 each PO QDAY 12/07/15 01/20/18 Unknown [ Caplet] Previous Rx's Medication Instructions Recorded Last Taken Type HYDROcodone/APAP 5-325 [[place] 1 each PO Q6HR PRN #30 tablet 04/22/16 09/13/17 Rx 5/325] Ibuprofen [Motrin] 800 mg PO Q8HR PRN #60 tablet 04/22/16 09/14/17 Rx Docusate Sodium [Colace] 100 mg PO BID PRN #60 capsule 09/17/17 Unknown Rx Ibuprofen [Motrin] 800 mg PO Q8HR PRN #60 tablet 09/17/17 Unknown Rx Oxycodone HCl/Acetaminophen 1 each PO Q6HR PRN #45 tablet 09/17/17 Unknown Rx [Percocet 7.5/325 mg] Famotidine [Pepcid] 20 mg PO BID #60 tablet 01/20/18 Unknown Rx Metoclopramide [Reglan] 10 mg PO ACHS #60 tablet 01/20/18 Unknown Rx oxyCODONE /ACETAMINOPHEN [Percocet 1 tab PO Q6H PRN #20 tablet 01/20/18 Unknown Rx 5/325 mg] Dicyclomine [Bentyl] 10 mg PO QID 3 Days capsule 04/27/18 Unknown Rx Metoclopramide [Reglan] 10 mg PO TID PRN #12 tab 04/27/18 Unknown Rx traMADol [Ultram] 50 mg PO Q6HR PRN #12 tablet 04/27/18 Unknown Rx Promethazine [Phenergan TAB] 25 mg PO Q8HR PRN #9 tab 05/28/18 Unknown Rx Metoclopramide [Reglan] 10 mg PO QID #20 tab 07/13/18 Unknown Rx Acetaminophen/Codeine [Tylenol 1 tab PO Q6H PRN 3 Days #15 tab 02/09/19 Unknown Rx /Codeine # 3 tab] Cyclobenzaprine HCl [Flexeril 5 MG 5 mg PO Q8H PRN #15 tablet 02/09/19 Unknown Rx TAB] Ibuprofen [Motrin] 400 mg PO Q8H PRN #20 tablet 02/09/19 Unknown Rx Allergies Allergy/AdvReac Type Severity Reaction Status Date / Time ondansetron HCl Allergy Vomiting Verified 03/23/15 15:49 [From Zofran (as hydrochloride)] pineapple [Pineapple] Allergy Itching Verified 03/23/15 15:49 ED Review of Systems ROS: Stated complaint: VOMITING Other details as noted in HPI Constitutional: denies: chills, fever Respiratory: denies: cough, shortness of breath, wheezing Cardiovascular: denies: chest pain, palpitations Gastrointestinal: abdominal pain, nausea, vomiting. denies: diarrhea Genitourinary: denies: urgency, dysuria, discharge Musculoskeletal: denies: back pain, joint swelling, arthralgia Skin: denies: rash, lesions Neurological: denies: headache, weakness, paresthesias Psychiatric: denies: anxiety, depression ED Past Medical Hx - Past Medical History Previous Medical History?: Yes Hx Hypertension: No Hx Congestive Heart Failure: No Hx Diabetes: No Hx Deep Vein Thrombosis: No Hx Renal Disease: No Hx Sickle Cell Disease: No Hx Seizures: No Hx Psychiatric Treatment: Yes (bipolar and schizo) Hx Asthma: Yes Hx COPD: No Hx HIV: No - Surgical History Past Surgical History?: Yes Additional Surgical History: c sectX 1 - Social History Smoking Status: Current Every Day Smoker Substance Use Type: None - Medications Home Medications: Home Medications Medication Instructions Recorded Confirmed Last Taken Type Pnv No.95/Ferrous Fum/Folic AC 1 each PO QDAY 12/07/15 01/20/18 Unknown History [ Caplet] HYDROcodone/APAP 5-325 [[place] 1 each PO Q6HR PRN #30 tablet 04/22/16 01/20/18 09/13/17 Rx 5/325] Ibuprofen [Motrin] 800 mg PO Q8HR PRN #60 tablet 04/22/16 01/20/18 09/14/17 Rx Docusate Sodium [Colace] 100 mg PO BID PRN #60 capsule 09/17/17 01/20/18 Unknown Rx Ibuprofen [Motrin] 800 mg PO Q8HR PRN #60 tablet 09/17/17 01/20/18 Unknown Rx Oxycodone HCl/Acetaminophen 1 each PO Q6HR PRN #45 tablet 09/17/17 01/20/18 Unknown Rx [Percocet 7.5/325 mg] Famotidine [Pepcid] 20 mg PO BID #60 tablet 01/20/18 Unknown Rx Metoclopramide [Reglan] 10 mg PO ACHS #60 tablet 01/20/18 Unknown Rx oxyCODONE /ACETAMINOPHEN [Percocet 1 tab PO Q6H PRN #20 tablet 01/20/18 Unknown Rx 5/325 mg] Dicyclomine [Bentyl] 10 mg PO QID 3 Days capsule 04/27/18 Unknown Rx Metoclopramide [Reglan] 10 mg PO TID PRN #12 tab 04/27/18 Unknown Rx traMADol [Ultram] 50 mg PO Q6HR PRN #12 tablet 04/27/18 Unknown Rx Promethazine [Phenergan TAB] 25 mg PO Q8HR PRN #9 tab 05/28/18 Unknown Rx Metoclopramide [Reglan] 10 mg PO QID #20 tab 07/13/18 Unknown Rx Acetaminophen/Codeine [Tylenol 1 tab PO Q6H PRN 3 Days #15 tab 02/09/19 Unknown Rx /Codeine # 3 tab] Cyclobenzaprine HCl [Flexeril 5 MG 5 mg PO Q8H PRN #15 tablet 02/09/19 Unknown Rx TAB] Ibuprofen [Motrin] 400 mg PO Q8H PRN #20 tablet 02/09/19 Unknown Rx ED Physical Exam - General Limitations: No Limitations General appearance: alert, in no apparent distress - Respiratory Respiratory exam: Present: normal lung sounds bilaterally. Absent: respiratory distress - Cardiovascular Cardiovascular Exam: Present: regular rate, normal rhythm. Absent: systolic murmur, diastolic murmur, rubs, gallop - GI/Abdominal GI/Abdominal exam: Present: soft, tenderness (left lower quadrant and right lower quadrant), guarding, normal bowel sounds. Absent: distended, rebound, rigid, organomegaly, mass, bruit - Back Exam Back exam: Absent: CVA tenderness (R), CVA tenderness (L) - Neurological Exam Neurological exam: Present: alert, oriented X3, normal gait - Psychiatric Psychiatric exam: Present: normal affect, normal mood - Skin Skin exam: Present: warm, dry, intact, normal color. Absent: rash ED Course Vital Signs 04/16/19 04/16/19 14:06 17:26 Temperature 98.3 F 98.8 F Pulse Rate 58 L 61 Respiratory 16 18 Rate Blood Pressure 113/79 Blood Pressure 114/75 [Left] O2 Sat by Pulse 100 100 Oximetry ED Medical Decision Making - Lab Data Result diagrams: 04/16/19 15:00 04/16/19 15:00 Lab Results 04/16/19 04/16/19 04/16/19 Range/Units 15:00 15:00 17:15 WBC 7.7 (4.5-11.0) K/mm3 RBC 5.91 H (3.65-5.03) M/mm3 Hgb 16.3 H (10.1-14.3) gm/dl Hct 47.1 H (30.3-42.9) % MCV 80 (79-97) fl MCH 28 (28-32) pg MCHC 35 H (30-34) % RDW 15.5 H (13.2-15.2) % Plt Count 227 (140-440) K/mm3 Lymph % (Auto) 27.8 (13.4-35.0) % [place] % (Auto) 7.1 (0.0-7.3) % Eos % (Auto) 0.1 (0.0-4.3) % Baso % (Auto) 0.6 (0.0-1.8) % Lymph # 2.1 (1.2-5.4) K/mm3 [place] # 0.6 (0.0-0.8) K/mm3 Eos # 0.0 (0.0-0.4) K/mm3 Baso # 0.0 (0.0-0.1) K/mm3 Seg Neutrophils % 64.4 (40.0-70.0) % Seg Neutrophils # 5.0 (1.8-7.7) K/mm3 Sodium 138 (137-145) mmol/L Potassium 3.6 (3.6-5.0) mmol/L Chloride 96.5 L (98-107) mmol/L Carbon Dioxide 25 (22-30) mmol/L Anion Gap 20 mmol/L BUN 20 H (7-17) mg/dL Creatinine 0.7 (0.7-1.2) mg/dL Estimated GFR > 60 ml/min BUN/Creatinine Ratio 29 % Glucose 86 (65-100) mg/dL Calcium 10.1 (8.4-10.2) mg/dL Total Bilirubin 3.00 H (0.1-1.2) mg/dL AST 34 (5-40) units/L ALT 31 (7-56) units/L Alkaline Phosphatase 72 (35-129) units/L Total Protein 9.5 H (6.3-8.2) g/dL Albumin 5.5 H (3.9-5) g/dL Albumin/Globulin Ratio 1.4 % Lipase 27 (13-60) units/L Urine Color Yellow (Yellow) Urine Turbidity Cloudy (Clear) Urine pH 6.0 (5.0-7.0) Ur Specific [place] 1.032 H (1.003-1.030) Urine Protein 100 mg/dl (Negative) mg/dL Urine Glucose (UA) Neg (Negative) mg/dL Urine Ketones 20 (Negative) mg/dL Urine Blood Mod (Negative) Urine Nitrite Neg (Negative) Urine Bilirubin Neg (Negative) Urine Urobilinogen 2.0 (<2.0) mg/dL Ur Leukocyte Esterase Mod (Negative) Urine WBC (Auto) 28.0 H (0.0-6.0) /HPF Urine RBC (Auto) 33.0 (0.0-6.0) /HPF U Epithel Cells (Auto) 12.0 (0-13.0) /HPF Urine Mucus 3+ /HPF Urine HCG, Qual Negative (Negative) - Medical Decision Making Patient was examined by me. Vitals are normal and patient is in no acute distress. Obtained labs and ordered CT of abdomen and pelvis. Total bilirubin and BUN elevated. Lipase normal. Nurse states patient request to leave and refused CT of abdomen. Patient informed of risk associated with leaving AMA. She decided to leave and signed AMA, placed on chart. Critical care attestation.: If time is entered above; I have spent that time in minutes in the direct care of this critically ill patient, excluding procedure time. ED Disposition Clinical Impression: Left against medical advice Disposition: DC-07 LEFT AGAINST MED ADVICE Is pt being admited?: No Condition: Stable Instructions: Abdominal Pain (ED) Referrals: BUSHRA SHAHID MD [Primary Care Provider] - 3-5 Days Forms: AMA Form
== END 2019-04-16 19:36 | disposition left against medical advice (07) ==
LOC: ED 13:54
DX: R10.32 Left lower quadrant pain (principal); R10.31 Right lower quadrant pain; F31.9 Bipolar disorder, unspecified; F20.9 Schizophrenia, unspecified; J45.909 Unspecified asthma, uncomplicated; F17.200 Nicotine dependence, unspecified, uncomplicated; Z79.899 Other long term (current) drug therapy; Z88.6 Allergy status to analgesic agent; Z91.018 Allergy to other foods
CPT/HCPCS: 36415; 80053; 81001; 81025; 83690; 85025; 87086; 96361; 96374; 96375; 99283; J2270; J2765; J7030

== ENCOUNTER 2019-07-01 15:05 | Emergency (ER) | payer OTHER, MEDICAID ==
[2019-07-01] MEDS ORDERED: SODIUM CHLORIDE 0.9% 1000 ML 1,000 ML IV ONE (15:24)
[2019-07-01 15:25] VITALS: BP 109/69
--- NOTE | 2019-07-01 15:26 | Event Note ---
ED Screening Note Date of service: 07/01/19 Time: 15:19 ED Screening Note: 23 y o male presents with nausea and vomitting x 4 days This initial assessment/diagnostic orders/clinical plan/treatment(s) is/are subject to change based on patients health status, clinical progression and re-assessment by fellow clinical providers in the ED. Further treatment and workup at subsequent clinical providers discretion. Patient/guardian urged not to elope from the ED as their condition may be serious if not clinically assessed and managed. Initial orders include:
[2019-07-01 15:48] LABS: Hematocrit 49.1 % (30.3-42.9); Hemoglobin 16.7 gm/dl (10.1-14.3); Mean Corpuscular HGB Conc 34 % (30-34); Mean Corpuscular Volume 80 fl (79-97); Platelet Count 241 K/mm3 (140-440); Red Blood Count 6.14 M/mm3 (3.65-5.03); Red Cell Distribution Width 13.9 % (13.2-15.2)
[2019-07-01 16:09] LABS: Alanine Aminotransferase 23 units/L (7-56); Albumin 5.4 g/dL (3.9-5); BUN/Creatinine Ratio 21; Blood Urea Nitrogen 19 mg/dL (7-17); Calcium 9.8 mg/dL (8.4-10.2); Hemolysis Index 2
[2019-07-01] MEDS ORDERED: DICYCLOMINE 20 MG/2 ML INJ IM ONE (16:23)
[2019-07-01] MEDS ORDERED: FAMOTIDINE 20 MG/2 ML INJ IV ONE (16:23)
[2019-07-01] MEDS ORDERED: POTASSIUM CHLORIDE 10 MEQ 10 MEQ/100 ML BAG IV ONE (16:23)
[2019-07-01] MEDS ORDERED: METOCLOPRAMIDE 10 MG/2 ML INJ IV ONE (16:24)
[2019-07-01 16:59] LABS: Basophils % (Manual) 0 % (0.0-1.8); Total Cells Counted 100
[2019-07-01 17:00] LABS: Anisocytosis 1+; Platelet Estimate Consistent w Auto; Poikilocytosis 1+; Target Cells Few
[2019-07-01] MEDS ORDERED: D5W/0.9% NACL 1,000 ML IV SCH (17:00)
--- NOTE | 2019-07-01 17:48 | Emergency Department Report ---
ED N/V/D HPI - General Chief complaint: Nausea/Vomiting/Diarrhea Stated complaint: PAIN ALL OVER/VOMITING Time Seen by Provider: 07/01/19 15:18 Source: patient Mode of arrival: Ambulatory Limitations: No Limitations - History of Present Illness Initial comments: Patient is a 23-year-old F Female who is presenting with nausea vomiting for the past 3-4 days. Patient states she is unable to keep anything down. She has some very mild watery diarrhea but large amounts of vomiting. Patient states she feels weak with a dry mouth. She is very fatigued and feels as though she is having difficulty standing secondary to dizziness. Patient denies fevers chills cough cold congestion sore throat or neck stiffness at this time. - Related Data Home Medications Medication Instructions Recorded Confirmed Last Taken Pnv No.95/Ferrous Fum/Folic AC 1 each PO QDAY 12/07/15 01/20/18 Unknown [ Caplet] Previous Rx's Medication Instructions Recorded Last Taken Type HYDROcodone/APAP 5-325 [Crumrod 1 each PO Q6HR PRN #30 tablet 04/22/16 09/13/17 Rx 5/325] Ibuprofen [Motrin] 800 mg PO Q8HR PRN #60 tablet 04/22/16 09/14/17 Rx Docusate Sodium [Colace] 100 mg PO BID PRN #60 capsule 09/17/17 Unknown Rx Ibuprofen [Motrin] 800 mg PO Q8HR PRN #60 tablet 09/17/17 Unknown Rx Oxycodone HCl/Acetaminophen 1 each PO Q6HR PRN #45 tablet 09/17/17 Unknown Rx [Percocet 7.5/325 mg] Famotidine [Pepcid] 20 mg PO BID #60 tablet 01/20/18 Unknown Rx Metoclopramide [Reglan] 10 mg PO ACHS #60 tablet 01/20/18 Unknown Rx oxyCODONE /ACETAMINOPHEN [Percocet 1 tab PO Q6H PRN #20 tablet 01/20/18 Unknown Rx 5/325 mg] Dicyclomine [Bentyl] 10 mg PO QID 3 Days capsule 04/27/18 Unknown Rx Metoclopramide [Reglan] 10 mg PO TID PRN #12 tab 04/27/18 Unknown Rx traMADol [Ultram] 50 mg PO Q6HR PRN #12 tablet 04/27/18 Unknown Rx Promethazine [Phenergan TAB] 25 mg PO Q8HR PRN #9 tab 05/28/18 Unknown Rx Metoclopramide [Reglan] 10 mg PO QID #20 tab 07/13/18 Unknown Rx Acetaminophen/Codeine [Tylenol 1 tab PO Q6H PRN 3 Days #15 tab 02/09/19 Unknown Rx /Codeine # 3 tab] Cyclobenzaprine HCl [Flexeril 5 MG 5 mg PO Q8H PRN #15 tablet 02/09/19 Unknown Rx TAB] Ibuprofen [Motrin] 400 mg PO Q8H PRN #20 tablet 02/09/19 Unknown Rx Allergies Allergy/AdvReac Type Severity Reaction Status Date / Time ondansetron HCl Allergy Vomiting Verified 03/23/15 15:49 [From Zofran (as hydrochloride)] pineapple [Pineapple] Allergy Itching Verified 03/23/15 15:49 ED Review of Systems ROS: Stated complaint: PAIN ALL OVER/VOMITING Other details as noted in HPI Comment: All other systems reviewed and negative ED Past Medical Hx - Past Medical History Hx Hypertension: No Hx Congestive Heart Failure: No Hx Diabetes: No Hx Deep Vein Thrombosis: No Hx Renal Disease: No Hx Sickle Cell Disease: No Hx Seizures: No Hx Psychiatric Treatment: Yes (bipolar and schizo) Hx Asthma: Yes Hx COPD: No Hx HIV: No - Surgical History Additional Surgical History: c sectX 1 - Social History Smoking Status: Never Smoker Substance Use Type: None - Medications Home Medications: Home Medications Medication Instructions Recorded Confirmed Last Taken Type Pnv No.95/Ferrous Fum/Folic AC 1 each PO QDAY 12/07/15 01/20/18 Unknown History [ Caplet] HYDROcodone/APAP 5-325 [Crumrod 1 each PO Q6HR PRN #30 tablet 04/22/16 01/20/18 09/13/17 Rx 5/325] Ibuprofen [Motrin] 800 mg PO Q8HR PRN #60 tablet 04/22/16 01/20/18 09/14/17 Rx Docusate Sodium [Colace] 100 mg PO BID PRN #60 capsule 09/17/17 01/20/18 Unknown Rx Ibuprofen [Motrin] 800 mg PO Q8HR PRN #60 tablet 09/17/17 01/20/18 Unknown Rx Oxycodone HCl/Acetaminophen 1 each PO Q6HR PRN #45 tablet 09/17/17 01/20/18 Unknown Rx [Percocet 7.5/325 mg] Famotidine [Pepcid] 20 mg PO BID #60 tablet 01/20/18 Unknown Rx Metoclopramide [Reglan] 10 mg PO ACHS #60 tablet 01/20/18 Unknown Rx oxyCODONE /ACETAMINOPHEN [Percocet 1 tab PO Q6H PRN #20 tablet 01/20/18 Unknown Rx 5/325 mg] Dicyclomine [Bentyl] 10 mg PO QID 3 Days capsule 04/27/18 Unknown Rx Metoclopramide [Reglan] 10 mg PO TID PRN #12 tab 04/27/18 Unknown Rx traMADol [Ultram] 50 mg PO Q6HR PRN #12 tablet 04/27/18 Unknown Rx Promethazine [Phenergan TAB] 25 mg PO Q8HR PRN #9 tab 05/28/18 Unknown Rx Metoclopramide [Reglan] 10 mg PO QID #20 tab 07/13/18 Unknown Rx Acetaminophen/Codeine [Tylenol 1 tab PO Q6H PRN 3 Days #15 tab 02/09/19 Unknown Rx /Codeine # 3 tab] Cyclobenzaprine HCl [Flexeril 5 MG 5 mg PO Q8H PRN #15 tablet 02/09/19 Unknown Rx TAB] Ibuprofen [Motrin] 400 mg PO Q8H PRN #20 tablet 02/09/19 Unknown Rx ED Physical Exam - General Limitations: No Limitations General appearance: alert, in no apparent distress - Head Head exam: Present: atraumatic, normocephalic - Eye Eye exam: Present: normal appearance - ENT ENT exam: Present: mucous membranes dry. Absent: mucous membranes moist - Neck Neck exam: Present: normal inspection - Respiratory Respiratory exam: Present: normal lung sounds bilaterally. Absent: respiratory distress, wheezes, rales - Cardiovascular Cardiovascular Exam: Present: regular rate, normal rhythm, normal heart sounds. Absent: systolic murmur, diastolic murmur, rubs, gallop - GI/Abdominal GI/Abdominal exam: Present: soft, tenderness, normal bowel sounds. Absent: distended, guarding, rebound - Extremities Exam Extremities exam: Present: normal inspection - Back Exam Back exam: Present: normal inspection - Neurological Exam Neurological exam: Present: alert, oriented X3 - Psychiatric Psychiatric exam: Present: normal affect, normal mood - Skin Skin exam: Present: warm, dry, intact, normal color. Absent: rash ED Course Vital Signs 07/01/19 15:20 Temperature 98.7 F Pulse Rate 104 H Respiratory 18 Rate Blood Pressure 109/69 O2 Sat by Pulse 100 Oximetry - Reevaluation(s) Reevaluation #1: 07/01/19 17:47 Patient clinically appears dehydrated with dry mouth with mild tachycardia and a blood pressure of 109 systolic. Patient will be hydrated here in emergency department. Review of laboratory studies she has a elevated bilirubin ultrasound has been ordered. Patient also has a low potassium. Potassium replacement therapy be initiated as well. ED Medical Decision Making - Lab Data Result diagrams: 07/01/19 15:25 07/01/19 15:31 Lab Results 07/01/19 07/01/19 07/01/19 Range/Units 15:25 15:31 15:32 WBC 7.1 (4.5-11.0) K/mm3 RBC 6.14 H (3.65-5.03) M/mm3 Hgb 16.7 H (10.1-14.3) gm/dl Hct 49.1 H (30.3-42.9) % MCV 80 (79-97) fl MCH 27 L (28-32) pg MCHC 34 (30-34) % RDW 13.9 (13.2-15.2) % Plt Count 241 (140-440) K/mm3 Lymph % (Auto) Webmethods Architect Add Manual Diff Complete Total Counted 100 Seg Neutrophils % Webmethods Architect Seg Neuts % (Manual) 37.0 L (40.0-70.0) % Band Neutrophils % 0 % Lymphocytes % (Manual) 57.0 H (13.4-35.0) % Reactive Lymphs % (Man) 0 % Monocytes % (Manual) 5.0 (0.0-7.3) % Eosinophils % (Manual) 1.0 (0.0-4.3) % Basophils % (Manual) 0 (0.0-1.8) % Metamyelocytes % 0 % Myelocytes % 0 % Promyelocytes % 0 % Blast Cells % 0 % Nucleated RBC % Not Reportable Seg Neutrophils # Man 2.6 (1.8-7.7) K/mm3 Band Neutrophils # 0.0 K/mm3 Lymphocytes # (Manual) 4.0 (1.2-5.4) K/mm3 Abs React Lymphs (Man) 0.0 K/mm3 Monocytes # (Manual) 0.4 (0.0-0.8) K/mm3 Eosinophils # (Manual) 0.1 (0.0-0.4) K/mm3 Basophils # (Manual) 0.0 (0.0-0.1) K/mm3 Metamyelocytes # 0.0 K/mm3 Myelocytes # 0.0 K/mm3 Promyelocytes # 0.0 K/mm3 Blast Cells # 0.0 K/mm3 WBC Morphology Not Reportable Hypersegmented Neuts Not Reportable Hyposegmented Neuts Not Reportable Hypogranular Neuts Not Reportable Smudge Cells Not Reportable Toxic Granulation Not Reportable Toxic Vacuolation Not Reportable Dohle Bodies Not Reportable Pelger-Huet Anomaly Not Reportable Jackie Rods Not Reportable Platelet Estimate Consistent w auto Clumped Platelets Not Reportable Plt Clumps, EDTA Not Reportable Large Platelets Not Reportable Giant Platelets Not Reportable Platelet Satelliting Not Reportable Plt Morphology Comment Not Reportable RBC Morphology Not Reportable Dimorphic RBCs Not Reportable Polychromasia Not Reportable Hypochromasia Not Reportable Poikilocytosis 1+ Anisocytosis 1+ Microcytosis Not Reportable Macrocytosis Not Reportable Spherocytes Not Reportable Pappenheimer Bodies Not Reportable Sickle Cells Not Reportable Target Cells Few Tear Drop Cells Not Reportable Ovalocytes Not Reportable Helmet Cells Not Reportable Vásquez-Kelliher Bodies Not Reportable Gervais Rings Not Reportable Niyah Cells Not Reportable Bite Cells Not Reportable Crenated Cell Not Reportable Elliptocytes Not Reportable Acanthocytes (Spur) Not Reportable Rouleaux Not Reportable Hemoglobin C Crystals Not Reportable Schistocytes Not Reportable Malaria parasites Not Reportable Dougie Bodies Not Reportable Hem Pathologist Commnt No Sodium 134 L (137-145) mmol/L Potassium 3.0 L (3.6-5.0) mmol/L Chloride 91.5 L (98-107) mmol/L Carbon Dioxide 25 (22-30) mmol/L Anion Gap 21 mmol/L BUN 19 H (7-17) mg/dL Creatinine 0.9 (0.7-1.2) mg/dL Estimated GFR > 60 ml/min BUN/Creatinine Ratio 21 % Glucose 102 H (65-100) mg/dL Calcium 9.8 (8.4-10.2) mg/dL Total Bilirubin 3.30 H (0.1-1.2) mg/dL AST 64 H (5-40) units/L ALT 23 (7-56) units/L Alkaline Phosphatase 83 (35-129) units/L Total Protein 9.0 H (6.3-8.2) g/dL Albumin 5.4 H (3.9-5) g/dL Albumin/Globulin Ratio 1.5 % Amylase 159 H (27-131) units/L Lipase 64 H (13-60) units/L Plasma/Serum Alcohol < 0.01 (0-0.07) % Critical care attestation.: If time is entered above; I have spent that time in minutes in the direct care of this critically ill patient, excluding procedure time. ED Disposition Condition: Stable Referrals: RUSTY DE LA TORRE MD [Primary Care Provider] - 3-5 Days
--- NOTE | 2019-07-01 18:37 | Ultrasound Report ---
ULTRASOUND ABDOMEN, LIMITED (RIGHT UPPER QUADRANT) INDICATION: epigastric, elevated bilirubin pain. COMPARISON: None available. FINDINGS: Pancreas: Visualized portion shows no significant abnormality. Liver: Normal. Gallbladder: Normal. Bile ducts: Normal. Common Bile Duct measures 4 mm. Free fluid: None. Additional Findings: None. IMPRESSION: 1. No sonographic abnormality of the right upper quadrant. Signer Name: Tony Graham MD Signed: 07/01/2019 6:33 PM Workstation Name: [id number]
== END 2019-07-01 18:52 ==
LOC: ED 15:05
DX: R68.2 Dry mouth, unspecified (principal); R00.0 Tachycardia, unspecified; R11.2 Nausea with vomiting, unspecified; R42 Dizziness and giddiness; F31.9 Bipolar disorder, unspecified; F20.9 Schizophrenia, unspecified; J45.909 Unspecified asthma, uncomplicated; I10 Essential (primary) hypertension; Z79.1 Long term (current) use of non-steroidal anti-inflammatories (NSAID); Z79.899 Other long term (current) drug therapy; Z91.018 Allergy to other foods; Z88.8 Allergy status to other drugs, medicaments and biological substances
CPT/HCPCS: 36415; 76705; 80053; 82150; 83690; 85007; 85025; 96361; 96365; 96366; 96372; 96375; 99284; J0500; J2765; J3480; J7030; 80320; G0480

== ENCOUNTER 2020-12-12 12:17 | Emergency (ER) | payer OTHER, MEDICAID ==
[2020-12-12] MEDS ORDERED: SODIUM CHLORIDE 0.9% 1000 ML 1,000 ML IV ONE ×2 (12:38→14:00)
[2020-12-12] MEDS ORDERED: METOCLOPRAMIDE 10 MG/2 ML INJ IV ONE (12:39)
--- NOTE | 2020-12-12 12:44 | Event Note ---
ED Screening Note Date of service: 12/12/20 Time: 12:43 ED Screening Note: c/o n/v/d and abd since last week saturday. Onset after eating [employer]. No sig past medical hx This initial assessment/diagnostic orders/clinical plan/treatment(s) is/are subject to change based on patients health status, clinical progression and re- assessment by fellow clinical providers in the ED. Further treatment and workup at subsequent clinical providers discretion. Patient/guardian urged not to elope from the ED as their condition may be serious if not clinically assessed and managed. Initial orders include: Abdominal pain order set
[2020-12-12] MEDS ORDERED: FAMOTIDINE 20 MG/2 ML INJ IV ONE (13:03)
[2020-12-12] MEDS ORDERED: MORPHINE 2 MG/1 ML INJ IV ONE (13:03)
[2020-12-12] MEDS ORDERED: DICYCLOMINE 20 MG TAB PO ONE (13:03)
[2020-12-12 13:23] LABS: Basophils % (Auto) 0.6 % (0.0-1.8); Eosinophils % (Auto) 0.3 % (0.0-4.3); Lymphocytes # (Auto) 3.1 K/mm3 (1.2-5.4); Lymphocytes % (Auto) 48.4 % (13.4-35.0); Mean Corpuscular HGB Conc 36 % (30-34); Mean Corpuscular Volume 79 fl (79-97); Monocytes # (Auto) 0.5 K/mm3 (0.0-0.8); Monocytes % (Auto) 8.4 % (0.0-7.3); Platelet Count 216 K/mm3 (140-440); Red Blood Count 6.07 M/mm3 (3.65-5.03); Red Cell Distribution Width 14.6 % (13.2-15.2)
[2020-12-12 13:26] LABS: Hemoglobin 17.1 gm/dl (10.1-14.3)
[2020-12-12 13:50] LABS: Alanine Aminotransferase 14 units/L (7-56); BUN/Creatinine Ratio 30; Blood Urea Nitrogen 24 mg/dL (7-17); Calcium 9.3 mg/dL (8.4-10.2); Hemolysis Index 40
[2020-12-12] MEDS ORDERED: POTASSIUM CHLORIDE ER 20 MEQ TAB PO ONE (14:00)
--- NOTE | 2020-12-12 14:49 | Emergency Department Report ---
ED Abdominal Pain HPI - General Chief Complaint: Nausea/Vomiting/Diarrhea Stated Complaint: VOMITING Time Seen by Provider: 12/12/20 12:36 Source: patient Mode of arrival: Ambulatory Limitations: No Limitations - History of Present Illness Initial Comments: This is a 25-year-old female nontoxic, well nourished in appearance, no acute signs of distress presents to the ED with c/o of nausea and vomiting and abdominal pain 1 week. Patient describes vomiting as food content and yellow gastric acid. Patient describes abdominal pain as cramping and aching with level of 8/10 primarily to the upper abdomen. Patient denies any radiation of pain. Patient denies chest pain, short of breath, fever, hemoptysis, blood in stool, chills, headache, stiff neck, numbness or tingling. Patient denies any diarrhea or constipation. Denies any blood in stool. Patient denies any recent travels. Patient stated allergies to Zofran. Denies any significant past medical history. MD Complaint: abdominal pain -: days(s) Location: LUQ, RUQ Radiation: none Migration to: no migration Severity: mild Severity scale (0 -10): 8 Quality: cramping, aching Consistency: constant Improves With: nothing Worsens With: nothing Associated Symptoms: nausea, vomiting. denies: diarrhea, fever, chills, constipation, dysuria, hematemesis, hematochezia, melena, hematuria, anorexia, syncope - Related Data Home Medications Medication Instructions Recorded Confirmed Last Taken Pnv No.95/Ferrous Fum/Folic AC 1 each PO QDAY 12/07/15 01/20/18 Unknown [ Caplet] Previous Rx's Medication Instructions Recorded Last Taken Type HYDROcodone/APAP 5-325 [[place] 1 each PO Q6HR PRN #30 tablet 04/22/16 09/13/17 Rx 5/325] Ibuprofen [Motrin] 800 mg PO Q8HR PRN #60 tablet 04/22/16 09/14/17 Rx Docusate Sodium [Colace] 100 mg PO BID PRN #60 capsule 09/17/17 Unknown Rx Ibuprofen [Motrin] 800 mg PO Q8HR PRN #60 tablet 09/17/17 Unknown Rx Oxycodone HCl/Acetaminophen 1 each PO Q6HR PRN #45 tablet 09/17/17 Unknown Rx [Percocet 7.5/325 mg] Famotidine [Pepcid] 20 mg PO BID #60 tablet 01/20/18 Unknown Rx Metoclopramide [Reglan] 10 mg PO ACHS #60 tablet 01/20/18 Unknown Rx oxyCODONE /ACETAMINOPHEN [Percocet 1 tab PO Q6H PRN #20 tablet 01/20/18 Unknown Rx 5/325 mg] Dicyclomine [Bentyl] 10 mg PO QID 3 Days capsule 04/27/18 Unknown Rx Metoclopramide [Reglan] 10 mg PO TID PRN #12 tab 04/27/18 Unknown Rx traMADoL [Ultram] 50 mg PO Q6HR PRN #12 tablet 04/27/18 Unknown Rx Promethazine [Phenergan TAB] 25 mg PO Q8HR PRN #9 tab 05/28/18 Unknown Rx Metoclopramide [Reglan] 10 mg PO QID #20 tab 07/13/18 Unknown Rx Acetaminophen/Codeine [Tylenol 1 tab PO Q6H PRN 3 Days #15 tab 02/09/19 Unknown Rx /Codeine # 3 tab] Cyclobenzaprine HCl [Flexeril 5 MG 5 mg PO Q8H PRN #15 tablet 02/09/19 Unknown Rx TAB] Ibuprofen [Motrin] 400 mg PO Q8H PRN #20 tablet 02/09/19 Unknown Rx Metoclopramide [Reglan] 10 mg PO Q12H PRN #12 tab 12/12/20 Unknown Rx cephALEXin [Keflex] 500 mg PO Q8HR #21 cap 12/12/20 Unknown Rx Allergies Allergy/AdvReac Type Severity Reaction Status Date / Time ondansetron HCl Allergy Vomiting Verified 03/23/15 15:49 [From Zofran (as hydrochloride)] pineapple [Pineapple] Allergy Itching Verified 03/23/15 15:49 ED Review of Systems ROS: Stated complaint: VOMITING Other details as noted in HPI Constitutional: denies: chills, fever Eyes: denies: eye pain, eye discharge, vision change ENT: denies: ear pain, throat pain Respiratory: denies: cough, shortness of breath, wheezing Cardiovascular: denies: chest pain, palpitations Endocrine: no symptoms reported Gastrointestinal: abdominal pain, nausea, vomiting. denies: diarrhea, constipation, hematemesis, melena, hematochezia Genitourinary: denies: urgency, dysuria, discharge Musculoskeletal: denies: back pain, joint swelling, arthralgia Skin: denies: rash, lesions Neurological: denies: headache, weakness, paresthesias Psychiatric: denies: anxiety, depression Hematological/Lymphatic: denies: easy bleeding, easy bruising ED Past Medical Hx - Past Medical History Previous Medical History?: Yes Hx Hypertension: No Hx Congestive Heart Failure: No Hx Diabetes: No Hx Deep Vein Thrombosis: No Hx Renal Disease: No Hx Sickle Cell Disease: No Hx Seizures: No Hx Psychiatric Treatment: Yes (bipolar and schizo) Hx Asthma: Yes Hx COPD: No Hx HIV: No - Surgical History Past Surgical History?: Yes Additional Surgical History: c sectX 1 - Social History Smoking Status: Never Smoker Substance Use Type: None - Medications Home Medications: Home Medications Medication Instructions Recorded Confirmed Last Taken Type Pnv No.95/Ferrous Fum/Folic AC 1 each PO QDAY 12/07/15 01/20/18 Unknown History [ Caplet] HYDROcodone/APAP 5-325 [[place] 1 each PO Q6HR PRN #30 tablet 04/22/16 01/20/18 09/13/17 Rx 5/325] Ibuprofen [Motrin] 800 mg PO Q8HR PRN #60 tablet 04/22/16 01/20/18 09/14/17 Rx Docusate Sodium [Colace] 100 mg PO BID PRN #60 capsule 09/17/17 01/20/18 Unknown Rx Ibuprofen [Motrin] 800 mg PO Q8HR PRN #60 tablet 09/17/17 01/20/18 Unknown Rx Oxycodone HCl/Acetaminophen 1 each PO Q6HR PRN #45 tablet 09/17/17 01/20/18 Unknown Rx [Percocet 7.5/325 mg] Famotidine [Pepcid] 20 mg PO BID #60 tablet 01/20/18 Unknown Rx Metoclopramide [Reglan] 10 mg PO ACHS #60 tablet 01/20/18 Unknown Rx oxyCODONE /ACETAMINOPHEN [Percocet 1 tab PO Q6H PRN #20 tablet 01/20/18 Unknown Rx 5/325 mg] Dicyclomine [Bentyl] 10 mg PO QID 3 Days capsule 04/27/18 Unknown Rx Metoclopramide [Reglan] 10 mg PO TID PRN #12 tab 04/27/18 Unknown Rx traMADoL [Ultram] 50 mg PO Q6HR PRN #12 tablet 04/27/18 Unknown Rx Promethazine [Phenergan TAB] 25 mg PO Q8HR PRN #9 tab 05/28/18 Unknown Rx Metoclopramide [Reglan] 10 mg PO QID #20 tab 07/13/18 Unknown Rx Acetaminophen/Codeine [Tylenol 1 tab PO Q6H PRN 3 Days #15 tab 02/09/19 Unknown Rx /Codeine # 3 tab] Cyclobenzaprine HCl [Flexeril 5 MG 5 mg PO Q8H PRN #15 tablet 02/09/19 Unknown Rx TAB] Ibuprofen [Motrin] 400 mg PO Q8H PRN #20 tablet 02/09/19 Unknown Rx Metoclopramide [Reglan] 10 mg PO Q12H PRN #12 tab 12/12/20 Unknown Rx cephALEXin [Keflex] 500 mg PO Q8HR #21 cap 12/12/20 Unknown Rx ED Physical Exam - General Limitations: No Limitations General appearance: alert, in no apparent distress - Head Head exam: Present: atraumatic, normocephalic - Eye Eye exam: Present: normal appearance - Neck Neck exam: Present: normal inspection, full ROM. Absent: tenderness, meningismus, lymphadenopathy - Respiratory Respiratory exam: Present: normal lung sounds bilaterally. Absent: respiratory distress, wheezes, rales, rhonchi, stridor, chest wall tenderness, accessory muscle use, decreased breath sounds, prolonged expiratory - Cardiovascular Cardiovascular Exam: Present: regular rate, normal rhythm, normal heart sounds. Absent: bradycardia, tachycardia, irregular rhythm, systolic murmur, diastolic murmur, rubs, gallop - GI/Abdominal GI/Abdominal exam: Present: soft, tenderness (Upper abdomen bilateral), normal bowel sounds. Absent: distended, guarding, rebound, rigid, diminished bowel sounds - Extremities Exam Extremities exam: Present: normal inspection, full ROM - Back Exam Back exam: Present: normal inspection, full ROM. Absent: tenderness, CVA tenderness (R), CVA tenderness (L), muscle spasm, paraspinal tenderness, vertebral tenderness, rash noted - Neurological Exam Neurological exam: Present: alert, oriented X3, normal gait - Psychiatric Psychiatric exam: Present: normal affect, normal mood - Skin Skin exam: Present: warm, dry, intact, normal color. Absent: rash ED Course Vital Signs 12/12/20 12:27 Temperature 98.5 F Pulse Rate 104 H Respiratory 16 Rate Blood Pressure 128/90 O2 Sat by Pulse 100 Oximetry - Reevaluation(s) Reevaluation #1: 12/12/20 14:49 Patient is speaking in full sentences with no signs of distress noted. ED Medical Decision Making - Lab Data Result diagrams: 12/12/20 13:01 12/12/20 13:01 Lab Results 12/12/20 12/12/20 12/12/20 Range/Units 13:01 13:01 13:01 WBC 6.4 (4.5-11.0) K/mm3 RBC 6.07 H (3.65-5.03) M/mm3 Hgb 17.1 H (10.1-14.3) gm/dl Hct 48.0 H (30.3-42.9) % MCV 79 (79-97) fl MCH 28 (28-32) pg MCHC 36 H (30-34) % RDW 14.6 (13.2-15.2) % Plt Count 216 (140-440) K/mm3 Lymph % (Auto) 48.4 H (13.4-35.0) % Blair % (Auto) 8.4 H (0.0-7.3) % Eos % (Auto) 0.3 (0.0-4.3) % Baso % (Auto) 0.6 (0.0-1.8) % Lymph # (Auto) 3.1 (1.2-5.4) K/mm3 Blair # (Auto) 0.5 (0.0-0.8) K/mm3 Eos # (Auto) 0.0 (0.0-0.4) K/mm3 Baso # (Auto) 0.0 (0.0-0.1) K/mm3 Seg Neutrophils % 42.3 (40.0-70.0) % Seg Neutrophils # 2.7 (1.8-7.7) K/mm3 Sodium 131 L (137-145) mmol/L Potassium 3.4 L (3.6-5.0) mmol/L Chloride 87.6 L (98-107) mmol/L Carbon Dioxide 23 (22-30) mmol/L Anion Gap 24 mmol/L BUN 24 H (7-17) mg/dL Creatinine 0.8 (0.6-1.2) mg/dL Estimated GFR > 60 ml/min BUN/Creatinine Ratio 30 % Glucose 86 (65-100) mg/dL Calcium 9.3 (8.4-10.2) mg/dL Total Bilirubin 3.50 H (0.1-1.2) mg/dL AST 32 (5-40) units/L ALT 14 (7-56) units/L Alkaline Phosphatase 75 (35-129) units/L Total Protein 8.7 H (6.3-8.2) g/dL Albumin 5.0 (3.9-5) g/dL Albumin/Globulin Ratio 1.4 % Lipase 27 (13-60) units/L HCG, Qual Negative (Negative) Urine Color (Yellow) Urine Turbidity (Clear) Urine pH (5.0-7.0) Ur Specific [place] (1.003-1.030) Urine Protein (Negative) mg/dL Urine Glucose (UA) (Negative) mg/dL Urine Ketones (Negative) mg/dL Urine Blood (Negative) Urine Nitrite (Negative) Urine Bilirubin (Negative) Urine Urobilinogen (<2.0) mg/dL Ur Leukocyte Esterase (Negative) Urine WBC (Auto) (0.0-6.0) /HPF Urine RBC (Auto) (0.0-6.0) /HPF U Epithel Cells (Auto) (0-13.0) /HPF Urine Mucus /HPF 12/12/20 Range/Units Unknown WBC (4.5-11.0) K/mm3 RBC (3.65-5.03) M/mm3 Hgb (10.1-14.3) gm/dl Hct (30.3-42.9) % MCV (79-97) fl MCH (28-32) pg MCHC (30-34) % RDW (13.2-15.2) % Plt Count (140-440) K/mm3 Lymph % (Auto) (13.4-35.0) % [place] % (Auto) (0.0-7.3) % Eos % (Auto) (0.0-4.3) % Baso % (Auto) (0.0-1.8) % Lymph # (Auto) (1.2-5.4) K/mm3 [place] # (Auto) (0.0-0.8) K/mm3 Eos # (Auto) (0.0-0.4) K/mm3 Baso # (Auto) (0.0-0.1) K/mm3 Seg Neutrophils % (40.0-70.0) % Seg Neutrophils # (1.8-7.7) K/mm3 Sodium (137-145) mmol/L Potassium (3.6-5.0) mmol/L Chloride (98-107) mmol/L Carbon Dioxide (22-30) mmol/L Anion Gap mmol/L BUN (7-17) mg/dL Creatinine (0.6-1.2) mg/dL Estimated GFR ml/min BUN/Creatinine Ratio % Glucose (65-100) mg/dL Calcium (8.4-10.2) mg/dL Total Bilirubin (0.1-1.2) mg/dL AST (5-40) units/L ALT (7-56) units/L Alkaline Phosphatase (35-129) units/L Total Protein (6.3-8.2) g/dL Albumin (3.9-5) g/dL Albumin/Globulin Ratio % Lipase (13-60) units/L HCG, Qual (Negative) Urine Color Yellow (Yellow) Urine Turbidity Hazy (Clear) Urine pH 6.0 (5.0-7.0) Ur Specific [place] 1.051 H (1.003-1.030) Urine Protein 100 mg/dl (Negative) mg/dL Urine Glucose (UA) Neg (Negative) mg/dL Urine Ketones 20 (Negative) mg/dL Urine Blood Neg (Negative) Urine Nitrite Neg (Negative) Urine Bilirubin Neg (Negative) Urine Urobilinogen 4.0 (<2.0) mg/dL Ur Leukocyte Esterase Lg (Negative) Urine WBC (Auto) 27.0 H (0.0-6.0) /HPF Urine RBC (Auto) 7.0 (0.0-6.0) /HPF U Epithel Cells (Auto) 9.0 (0-13.0) /HPF Urine Mucus 1+ /HPF - Radiology Data [facility] [address] [place] [address] Cat Scan Report Signed Patient: ALEXIS HOWARD MR#: [id number] : 1995 Acct:[id number] Age/Sex: 25 / F ADM Date: 12/12/20 Loc: ED Attending Dr: Ordering Physician: ELIJAH HOWARD NP Date of Service: 12/12/20 Procedure(s): CT abdomen pelvis w con Accession Number(s): [id number] cc: ELIJAH HOWARD NP CT ABDOMEN AND PELVIS WITH CONTRAST HISTORY: Abdominal pain with nausea and vomiting COMPARISON: 05/28/2018 TECHNIQUE: Axial CT images were obtained through the abdomen and pelvis after 100 cc of IV contrast. Sagittal and coronal reformatted images. All CT scans at this location are performed using CT dose reduction for ALARA by means of automated exposure control. FINDINGS: CT ABDOMEN: Lung Bases: Clear. Liver: No significant abnormality. Biliary: No significant abnormality. Spleen: No significant abnormality. Unenlarged. Pancreas: No significant abnormality. Adrenals: No significant abnormality. Kidneys: No significant abnormality. Lymphatics: No lymphadenopathy. Vasculature: No significant abnormality. Bowel/Peritoneum: No significant abnormality. No free air. No free fluid. The appendix is not confidently identified but no inflammatory changes in the right lower quadrant. CT PELVIS: : No significant abnormality. Osseous Structures: No significant abnormality. Additional Findings: None IMPRESSION: No significant abnormality. Signer Name: Ant Arce Jr, MD Signed: 12/12/2020 2:44 PM Workstation Name: [id number] Transcribed By: TTR Dictated By: ANT ARCE JR, MD Electronically Authenticated By: ANT ARCE JR, MD Signed Date/Time: 12/12/20 144 DD/ 42 TD/TT: - Medical Decision Making This is a 21-year-old female that presents with abdominal pain, UTI, and dehydration with hypokelmia. Patient is stable and was examined by me. Negative signs of symptoms of appendicitis. Labs obtained. UA obtained. CT of abdomen obtained and dictated by the radiologist. Patient is notified of the report with no questions noted by the patient. Vital signs are stable prior to discharge. Patient received medical treatment in the ED which patient stated symptoms has resovled and subsided. Was instructed note to operate any machinery due to possible drowsiness and stated someone will drive the patient home. A by mouth challenge has been obtained and patient tolerated well with no nausea vomiting. Patient was also instructed to Follow-up with a primary care doctor in 3-5 days or if symptoms worsen and continue return to emergency room as soon as possible. At time of discharge, the patient does not seem toxic or ill in appearance. No acute signs of distress noted. Patient agrees to discharge treatment plan of care. No further questions noted by the patient. Critical care attestation.: If time is entered above; I have spent that time in minutes in the direct care of this critically ill patient, excluding procedure time. ED Disposition Clinical Impression: Hypokalemia Abdominal pain Qualifiers: Abdominal location: upper abdomen, unspecified Qualified Code(s): R10.10 - Upper abdominal pain, unspecified Nausea & vomiting Qualifiers: Vomiting type: unspecified Vomiting Intractability: non-intractable Qualified Code(s): R11.2 - Nausea with vomiting, unspecified UTI (urinary tract infection) Qualifiers: Urinary tract infection type: acute cystitis Hematuria presence: without hematuria Qualified Code(s): N30.00 - Acute cystitis without hematuria Disposition: TO HOME OR SELFCARE Is pt being admited?: No Does the pt Need Aspirin: No Condition: Stable Instructions: Nausea and Vomiting, Adult, Abdominal Pain, Adult, [id number], Urinary Tract Infection, Adult, [id number] Additional Instructions: Follow-up with a primary care and rocket engine tester doctor in 3-5 days or if symptoms worsen and continue return to emergency room as soon as possible. Prescriptions: cephALEXin [Keflex] 500 mg PO Q8HR #21 cap Metoclopramide [Reglan] 10 mg PO Q12H PRN #12 tab PRN Reason: Nausea Referrals: PRIMARY CAREMD [Referring] - 3-5 Days BUSHRA SHAHID MD [Staff Physician] - 3-5 Days [facility] [Provider Group] - 3-5 Days Forms: Work/School Release Form(ED) Time of Disposition: 15:08
[2020-12-12 14:51] LABS: Bilirubin,Urine NEG (Negative); Blood,Urine NEG (Negative); Color,Urine Yellow (Yellow); Mucus,Urine 1+ /HPF
[2020-12-12 16:07] VITALS: BP 128/78
== END 2020-12-12 16:07 | disposition home or self-care (01) ==
LOC: ED 12:17
DX: N39.0 Urinary tract infection, site not specified (principal); E87.6 Hypokalemia; R10.30 Lower abdominal pain, unspecified; R11.2 Nausea with vomiting, unspecified; F31.9 Bipolar disorder, unspecified; F20.9 Schizophrenia, unspecified; J45.909 Unspecified asthma, uncomplicated; Z98.890 Other specified postprocedural states; Z79.1 Long term (current) use of non-steroidal anti-inflammatories (NSAID); Z79.899 Other long term (current) drug therapy; Z91.018 Allergy to other foods; Z88.8 Allergy status to other drugs, medicaments and biological substances
CPT/HCPCS: 36415; 74177; 80053; 81001; 83690; 84703; 85025; 87086; 96361; 96374; 96375; 99284; J2270; J2765; J7030; Q9967

== ENCOUNTER 2021-05-11 13:26 | Emergency (ER) | payer MEDICAID, OTHER ==
[2021-05-11 17:53] VITALS: BP 107/72
== END 2021-05-12 01:36 | disposition left against medical advice (07) ==
LOC: ED 13:26
DX: R53.1 Weakness (principal); R11.2 Nausea with vomiting, unspecified; F20.9 Schizophrenia, unspecified; F31.9 Bipolar disorder, unspecified; Z98.890 Other specified postprocedural states; Z88.8 Allergy status to other drugs, medicaments and biological substances; Z91.018 Allergy to other foods
CPT/HCPCS: 36415; 80053; 83690; 83735; 84702; 85025; 99283

== ENCOUNTER 2021-05-13 09:57 | Emergency (ER) | payer MEDICAID, OTHER ==
[2021-05-13 10:14] VITALS: BP 134/95
--- NOTE | 2021-05-13 10:21 | Event Note ---
ED Screening Note Date of service: 05/13/21 Time: 10:20 ED Screening Note: Patient presents to the ER today with complaints of nausea, vomiting and abdominal pain since last week Saturday with associated generalized weakness and fatigue. She also reports associated diffuse anterior chest pain and shortness of breath but denies any URI symptoms or cough. She denies any alcohol use or illicit drug use. She denies any underlying significant past medical history. Patient noted to be ill-appearing and lethargic in triage, and questionable mild scleral icterus This initial assessment/diagnostic orders/clinical plan/treatment(s) is/are subject to change based on patients health status, clinical progression and re- assessment by fellow clinical providers in the ED. Further treatment and workup at subsequent clinical providers discretion. Patient/guardian urged not to elope from the ED as their condition may be serious if not clinically assessed and managed. Initial orders include: Abdominal pain order set including EKG and chest x-ray
[2021-05-13 11:03] LABS: Basophils % (Auto) 0.6 % (0.0-1.8); Eosinophils % (Auto) 0.5 % (0.0-4.3); Hematocrit 48.8 % (30.3-42.9); Hemoglobin 17.1 gm/dl (10.1-14.3); Lymphocytes # (Auto) 2.3 K/mm3 (1.2-5.4); Lymphocytes % (Auto) 45.3 % (13.4-35.0); Mean Corpuscular HGB Conc 35 % (30-34); Mean Corpuscular Volume 79 fl (79-97); Monocytes # (Auto) 0.5 K/mm3 (0.0-0.8); Monocytes % (Auto) 9.2 % (0.0-7.3); Red Blood Count 6.15 M/mm3 (3.65-5.03); Red Cell Distribution Width 14.5 % (13.2-15.2)
[2021-05-13 11:13] LABS: Alanine Aminotransferase 16 units/L (7-56); Albumin 5.2 g/dL (3.9-5); BUN/Creatinine Ratio 24; Bilirubin,Direct 0.5 mg/dL (0-0.2); Blood Urea Nitrogen 19 mg/dL (7-17); Calcium 10.5 mg/dL (8.4-10.2); Hemolysis Index 18
--- NOTE | 2021-05-13 11:45 | XRay Report ---
CHEST 2 VIEWS INDICATION / CLINICAL INFORMATION: chest pain. COMPARISON: None available. FINDINGS: SUPPORT DEVICES: None. HEART / MEDIASTINUM: No significant abnormality. LUNGS / PLEURA: No significant pulmonary or pleural abnormality. No pneumothorax. ADDITIONAL FINDINGS: No significant additional findings. IMPRESSION: 1. No acute findings. Signer Name: Maikel Potts MD Signed: 05/13/2021 11:41 AM Workstation Name: [id number]
[2021-05-13 12:44] LABS: Platelet Count 193 K/mm3 (140-440)
[2021-05-13] MEDS ORDERED: PROMETHAZINE 25 MG TAB PO ONE (13:31)
[2021-05-13] MEDS ORDERED: POTASSIUM CHLORIDE ER 20 MEQ TAB PO ONE ×2 (17:24→20:00)
[2021-05-13] MEDS ORDERED: SODIUM CHLORIDE 0.9% 1000 ML 1,000 ML IV ONE (17:24)
[2021-05-13] MEDS ORDERED: MORPHINE 4 MG/1 ML INJ IV ONE ×2 (17:35→20:00)
--- NOTE | 2021-05-13 17:39 | Emergency Department Report ---
ED Chest Pain HPI - General Chief Complaint: Nausea/Vomiting/Diarrhea Stated Complaint: CHEST PAIN/VOMITTING/WEAK Time Seen by Provider: 05/13/21 17:22 Source: patient Mode of arrival: Wheelchair Limitations: No Limitations - History of Present Illness Initial Comments: 25-year-old female with no known past medical history presents complaining of 6 days of nausea/vomiting, chest pain, decreased appetite, abdominal pain, and generalized weakness. The patient states that on Saturday, 6 days ago she began with vomiting. She says she has had 5-6 episodes of vomiting per day which happen at random. She describes her vomitus as yellow in color. She is also had pain in the center of her chest which is nonradiating and constant for the past 6 days. She says the pain does intermittently get worse sometimes but has been constantly there. She also reports upper left sided abdominal pain which comes and goes. There are no known aggravating or alleviating factors. She denies any other associated symptoms including fever/chills, headache, vision c hange, back pain, cough, shortness of breath, focal weakness, sensory changes, vaginal discharge, dysuria, or any other complaints. The patient's LMP started 3 days ago. Her last bowel movement was approximately 1 week ago. The patient has no history of prior surgeries. The patient is not vaccinated against COVID- 19. - Related Data Home Medications Medication Instructions Recorded Confirmed Last Taken Pnv No.95/Ferrous Fum/Folic AC 1 each PO QDAY 12/07/15 01/20/18 Unknown [ Caplet] Previous Rx's Medication Instructions Recorded Last Taken Type HYDROcodone/APAP 5-325 [[place] 1 each PO Q6HR PRN #30 tablet 04/22/16 09/13/17 Rx 5/325] Ibuprofen [Motrin] 800 mg PO Q8HR PRN #60 tablet 04/22/16 09/14/17 Rx Docusate Sodium [Colace] 100 mg PO BID PRN #60 capsule 09/17/17 Unknown Rx Ibuprofen [Motrin] 800 mg PO Q8HR PRN #60 tablet 09/17/17 Unknown Rx Oxycodone HCl/Acetaminophen 1 each PO Q6HR PRN #45 tablet 09/17/17 Unknown Rx [Percocet 7.5/325 mg] Famotidine [Pepcid] 20 mg PO BID #60 tablet 01/20/18 Unknown Rx Metoclopramide [Reglan] 10 mg PO ACHS #60 tablet 01/20/18 Unknown Rx oxyCODONE /ACETAMINOPHEN [Percocet 1 tab PO Q6H PRN #20 tablet 01/20/18 Unknown Rx 5/325 mg] Dicyclomine [Bentyl] 10 mg PO QID 3 Days capsule 04/27/18 Unknown Rx Metoclopramide [Reglan] 10 mg PO TID PRN #12 tab 04/27/18 Unknown Rx traMADoL [Ultram] 50 mg PO Q6HR PRN #12 tablet 04/27/18 Unknown Rx Promethazine [Phenergan TAB] 25 mg PO Q8HR PRN #9 tab 05/28/18 Unknown Rx Metoclopramide [Reglan] 10 mg PO QID #20 tab 07/13/18 Unknown Rx Acetaminophen/Codeine [Tylenol 1 tab PO Q6H PRN 3 Days #15 tab 02/09/19 Unknown Rx /Codeine # 3 tab] Cyclobenzaprine HCl [Flexeril 5 MG 5 mg PO Q8H PRN #15 tablet 02/09/19 Unknown Rx TAB] Ibuprofen [Motrin] 400 mg PO Q8H PRN #20 tablet 02/09/19 Unknown Rx Metoclopramide [Reglan] 10 mg PO Q12H PRN #12 tab 12/12/20 Unknown Rx cephALEXin [Keflex] 500 mg PO Q8HR #21 cap 12/12/20 Unknown Rx Promethazine [Phenergan] 25 mg PO Q6HR PRN #12 tab 05/13/21 Unknown Rx Allergies Allergy/AdvReac Type Severity Reaction Status Date / Time ondansetron HCl Allergy Vomiting Verified 05/11/21 14:00 [From Zofran (as hydrochloride)] pineapple [Pineapple] Allergy Itching Verified 05/11/21 14:00 Heart Score - HEART Score History: Slightly suspicious EKG: Non-specific Age: < 45 Risk factors: No known risk factors Troponin: < normal limit HEART Score: 1 - EKG Read Time Time EKG Completed: 10:24 EKG Read Time: 10:34 ED Review of Systems ROS: Stated complaint: CHEST PAIN/VOMITTING/WEAK Other details as noted in HPI Constitutional: denies: chills, fever Eyes: denies: eye pain, vision change ENT: denies: throat pain, congestion Respiratory: denies: cough, shortness of breath Cardiovascular: chest pain. denies: palpitations, syncope Gastrointestinal: abdominal pain, nausea, vomiting Genitourinary: denies: dysuria, frequency Musculoskeletal: denies: back pain Skin: denies: rash, lesions Neurological: denies: headache, weakness, numbness, paresthesias ED Past Medical Hx - Past Medical History Previous Medical History?: Yes Hx Hypertension: No Hx Congestive Heart Failure: No Hx Diabetes: No Hx Deep Vein Thrombosis: No Hx Renal Disease: No Hx Sickle Cell Disease: No Hx Seizures: No Hx Psychiatric Treatment: Yes (bipolar and schizo) Hx Asthma: Yes Hx COPD: No Hx HIV: No - Surgical History Past Surgical History?: Yes Additional Surgical History: c sectX 1 - Social History Smoking Status: Never Smoker Substance Use Type: None - Medications Home Medications: Home Medications Medication Instructions Recorded Confirmed Last Taken Type Pnv No.95/Ferrous Fum/Folic AC 1 each PO QDAY 12/07/15 01/20/18 Unknown History [ Caplet] HYDROcodone/APAP 5-325 [[place] 1 each PO Q6HR PRN #30 tablet 04/22/16 01/20/18 09/13/17 Rx 5/325] Ibuprofen [Motrin] 800 mg PO Q8HR PRN #60 tablet 04/22/16 01/20/18 09/14/17 Rx Docusate Sodium [Colace] 100 mg PO BID PRN #60 capsule 09/17/17 01/20/18 Unknown Rx Ibuprofen [Motrin] 800 mg PO Q8HR PRN #60 tablet 09/17/17 01/20/18 Unknown Rx Oxycodone HCl/Acetaminophen 1 each PO Q6HR PRN #45 tablet 09/17/17 01/20/18 Unknown Rx [Percocet 7.5/325 mg] Famotidine [Pepcid] 20 mg PO BID #60 tablet 01/20/18 Unknown Rx Metoclopramide [Reglan] 10 mg PO ACHS #60 tablet 01/20/18 Unknown Rx oxyCODONE /ACETAMINOPHEN [Percocet 1 tab PO Q6H PRN #20 tablet 01/20/18 Unknown Rx 5/325 mg] Dicyclomine [Bentyl] 10 mg PO QID 3 Days capsule 04/27/18 Unknown Rx Metoclopramide [Reglan] 10 mg PO TID PRN #12 tab 04/27/18 Unknown Rx traMADoL [Ultram] 50 mg PO Q6HR PRN #12 tablet 04/27/18 Unknown Rx Promethazine [Phenergan TAB] 25 mg PO Q8HR PRN #9 tab 05/28/18 Unknown Rx Metoclopramide [Reglan] 10 mg PO QID #20 tab 07/13/18 Unknown Rx Acetaminophen/Codeine [Tylenol 1 tab PO Q6H PRN 3 Days #15 tab 02/09/19 Unknown Rx /Codeine # 3 tab] Cyclobenzaprine HCl [Flexeril 5 MG 5 mg PO Q8H PRN #15 tablet 02/09/19 Unknown Rx TAB] Ibuprofen [Motrin] 400 mg PO Q8H PRN #20 tablet 02/09/19 Unknown Rx Metoclopramide [Reglan] 10 mg PO Q12H PRN #12 tab 12/12/20 Unknown Rx cephALEXin [Keflex] 500 mg PO Q8HR #21 cap 12/12/20 Unknown Rx Promethazine [Phenergan] 25 mg PO Q6HR PRN #12 tab 05/13/21 Unknown Rx ED Physical Exam - General Limitations: No Limitations - Other Other exam information: GENERAL: Well developed and well nourished. No acute distress HEAD: Normocephalic. No obvious signs of trauma. ENT: Dry mucous membranes. EYES: Extraocular movements are intact. Pupils are equal round and reactive to light bilaterally NECK: Supple. Full ROM is intact. Trachea is midline. LUNGS: Nonlabored breathing. Equal chest rise bilaterally. Clear to auscultation bilaterally. CARDIOVASCULAR: Regular rate and rhythm. No murmurs or rubs. VASCULAR: Cap refill < 2 seconds ABDOMEN: Abdomen is soft and nondistended. There is tenderness to palpation of the left upper quadrant, epigastrium, and right upper quadrant without guarding or rebound. There is no tenderness of the lower abdominal quadrants bilater ally. SKIN: Skin is warm and dry NEURO: Patient is awake, alert, and oriented. coo II-XII grossly intact. No focal deficits. Normal motor and sensory exam throughout. Normal speech. MUSCULOSKELETAL: No obvious deformities. No significant tenderness. Normal ROM throughout. BACK/SPINE: No midline tenderness or step-offs of the C/T/L spine. No costovertebral angle tenderness. ED Course Vital Signs 05/13/21 10:12 Temperature 98.5 F Pulse Rate 74 Respiratory 18 Rate Blood Pressure 134/95 O2 Sat by Pulse 100 Oximetry KARLENE score - Karlene Score Age > 65: (0) No Aspirin use within the Past 7 Days: (0) No 3 or more CAD Risk Factors: (0) No 2 or more Angina events in past 24 hrs: (1) Yes Known CAD with more than 50% Stenosis: (0) No Elevated Cardiac Markers: (0) No ST Deviation Greater than 0.5mm: (0) No KARLENE Score: 1 ED Medical Decision Making - Lab Data Result diagrams: 05/13/21 10:34 05/13/21 20:47 Lab Results 05/13/21 05/13/21 05/13/21 Range/Units 10:34 10:34 10:34 WBC 5.0 (4.5-11.0) K/mm3 RBC 6.15 H (3.65-5.03) M/mm3 Hgb 17.1 H (10.1-14.3) gm/dl Hct 48.8 H (30.3-42.9) % MCV 79 (79-97) fl MCH 28 (28-32) pg MCHC 35 H (30-34) % RDW 14.5 (13.2-15.2) % Plt Count 193 (140-440) K/mm3 Lymph % (Auto) 45.3 H (13.4-35.0) % [place] % (Auto) 9.2 H (0.0-7.3) % Eos % (Auto) 0.5 (0.0-4.3) % Baso % (Auto) 0.6 (0.0-1.8) % Lymph # (Auto) 2.3 (1.2-5.4) K/mm3 [place] # (Auto) 0.5 (0.0-0.8) K/mm3 Eos # (Auto) 0.0 (0.0-0.4) K/mm3 Baso # (Auto) 0.0 (0.0-0.1) K/mm3 Seg Neutrophils % 44.4 (40.0-70.0) % Seg Neutrophils # 2.2 (1.8-7.7) K/mm3 Sodium 133 L (137-145) mmol/L Potassium 2.8 L* D (3.6-5.0) mmol/L Chloride 90.7 L (98-107) mmol/L Carbon Dioxide 28 (22-30) mmol/L Anion Gap 17 mmol/L BUN 19 H (7-17) mg/dL Creatinine 0.8 (0.6-1.2) mg/dL Estimated GFR > 60 ml/min BUN/Creatinine Ratio 24 % Glucose 95 (65-100) mg/dL Calcium 10.5 H (8.4-10.2) mg/dL Magnesium 2.40 H (1.7-2.3) mg/dL Total Bilirubin 3.40 H (0.1-1.2) mg/dL Direct Bilirubin 0.5 H (0-0.2) mg/dL Indirect Bilirubin 2.9 mg/dL AST 26 (5-40) units/L ALT 16 (7-56) units/L Alkaline Phosphatase 78 (35-129) units/L Troponin T (0.00-0.029) ng/mL Total Protein 8.5 H (6.3-8.2) g/dL Albumin 5.2 H (3.9-5) g/dL Albumin/Globulin Ratio 1.6 % Lipase 36 (13-60) units/L HCG, Qual Negative (Negative) Urine Color (Yellow) Urine Turbidity (Clear) Urine pH (5.0-7.0) Ur Specific [place] (1.003-1.030) Urine Protein (Negative) mg/dL Urine Glucose (UA) (Negative) mg/dL Urine Ketones (Negative) mg/dL Urine Blood (Negative) Urine Nitrite (Negative) Urine Bilirubin (Negative) Urine Urobilinogen (<2.0) mg/dL Ur Leukocyte Esterase (Negative) Urine WBC (Auto) (0.0-6.0) /HPF Urine RBC (Auto) (0.0-6.0) /HPF U Epithel Cells (Auto) (0-13.0) /HPF Urine Mucus /HPF 05/13/21 05/13/21 05/13/21 Range/Units 17:39 20:47 20:47 WBC (4.5-11.0) K/mm3 RBC (3.65-5.03) M/mm3 Hgb (10.1-14.3) gm/dl Hct (30.3-42.9) % MCV (79-97) fl MCH (28-32) pg MCHC (30-34) % RDW (13.2-15.2) % Plt Count (140-440) K/mm3 Lymph % (Auto) (13.4-35.0) % [place] % (Auto) (0.0-7.3) % Eos % (Auto) (0.0-4.3) % Baso % (Auto) (0.0-1.8) % Lymph # (Auto) (1.2-5.4) K/mm3 [place] # (Auto) (0.0-0.8) K/mm3 Eos # (Auto) (0.0-0.4) K/mm3 Baso # (Auto) (0.0-0.1) K/mm3 Seg Neutrophils % (40.0-70.0) % Seg Neutrophils # (1.8-7.7) K/mm3 Sodium 133 L (137-145) mmol/L Potassium 3.3 L (3.6-5.0) mmol/L Chloride 92.0 L (98-107) mmol/L Carbon Dioxide 29 (22-30) mmol/L Anion Gap 15 mmol/L BUN 19 H (7-17) mg/dL Creatinine 0.8 (0.6-1.2) mg/dL Estimated GFR > 60 ml/min BUN/Creatinine Ratio 24 % Glucose 83 (65-100) mg/dL Calcium 9.4 (8.4-10.2) mg/dL Magnesium (1.7-2.3) mg/dL Total Bilirubin (0.1-1.2) mg/dL Direct Bilirubin (0-0.2) mg/dL Indirect Bilirubin mg/dL AST (5-40) units/L ALT (7-56) units/L Alkaline Phosphatase (35-129) units/L Troponin T < 0.010 < 0.010 (0.00-0.029) ng/mL Total Protein (6.3-8.2) g/dL Albumin (3.9-5) g/dL Albumin/Globulin Ratio % Lipase (13-60) units/L HCG, Qual (Negative) Urine Color (Yellow) Urine Turbidity (Clear) Urine pH (5.0-7.0) Ur Specific [place] (1.003-1.030) Urine Protein (Negative) mg/dL Urine Glucose (UA) (Negative) mg/dL Urine Ketones (Negative) mg/dL Urine Blood (Negative) Urine Nitrite (Negative) Urine Bilirubin (Negative) Urine Urobilinogen (<2.0) mg/dL Ur Leukocyte Esterase (Negative) Urine WBC (Auto) (0.0-6.0) /HPF Urine RBC (Auto) (0.0-6.0) /HPF U Epithel Cells (Auto) (0-13.0) /HPF Urine Mucus /HPF 05/13/21 Range/Units Unknown WBC (4.5-11.0) K/mm3 RBC (3.65-5.03) M/mm3 Hgb (10.1-14.3) gm/dl Hct (30.3-42.9) % MCV (79-97) fl MCH (28-32) pg MCHC (30-34) % RDW (13.2-15.2) % Plt Count (140-440) K/mm3 Lymph % (Auto) (13.4-35.0) % [place] % (Auto) (0.0-7.3) % Eos % (Auto) (0.0-4.3) % Baso % (Auto) (0.0-1.8) % Lymph # (Auto) (1.2-5.4) K/mm3 [place] # (Auto) (0.0-0.8) K/mm3 Eos # (Auto) (0.0-0.4) K/mm3 Baso # (Auto) (0.0-0.1) K/mm3 Seg Neutrophils % (40.0-70.0) % Seg Neutrophils # (1.8-7.7) K/mm3 Sodium (137-145) mmol/L Potassium (3.6-5.0) mmol/L Chloride (98-107) mmol/L Carbon Dioxide (22-30) mmol/L Anion Gap mmol/L BUN (7-17) mg/dL Creatinine (0.6-1.2) mg/dL Estimated GFR ml/min BUN/Creatinine Ratio % Glucose (65-100) mg/dL Calcium (8.4-10.2) mg/dL Magnesium (1.7-2.3) mg/dL Total Bilirubin (0.1-1.2) mg/dL Direct Bilirubin (0-0.2) mg/dL Indirect Bilirubin mg/dL AST (5-40) units/L ALT (7-56) units/L Alkaline Phosphatase (35-129) units/L Troponin T (0.00-0.029) ng/mL Total Protein (6.3-8.2) g/dL Albumin (3.9-5) g/dL Albumin/Globulin Ratio % Lipase (13-60) units/L HCG, Qual (Negative) Urine Color Yellow (Yellow) Urine Turbidity Clear (Clear) Urine pH 6.0 (5.0-7.0) Ur Specific [place] 1.060 H (1.003-1.030) Urine Protein 30 mg/dl (Negative) mg/dL Urine Glucose (UA) Neg (Negative) mg/dL Urine Ketones Tr (Negative) mg/dL Urine Blood Lg (Negative) Urine Nitrite Neg (Negative) Urine Bilirubin Neg (Negative) Urine Urobilinogen 4.0 (<2.0) mg/dL Ur Leukocyte Esterase Tr (Negative) Urine WBC (Auto) 8.0 H (0.0-6.0) /HPF Urine RBC (Auto) 5.0 (0.0-6.0) /HPF U Epithel Cells (Auto) 6.0 (0-13.0) /HPF Urine Mucus 3+ /HPF - EKG Data -: EKG Interpreted by Mt - EKG Data 05/13/21 17:38 Normal sinus rhythm. Normal axis. Normal intervals. Nonspecific inverted T waves in leads V3 and V4. Otherwise no significant ST segment or T wave abnormalities. - Radiology Data CHEST 2 VIEWS INDICATION / CLINICAL INFORMATION: chest pain. COMPARISON: None available. FINDINGS: SUPPORT DEVICES: None. HEART / MEDIASTINUM: No significant abnormality. LUNGS / PLEURA: No significant pulmonary or pleural abnormality. No pneumothorax. ADDITIONAL FINDINGS: No significant additional findings. IMPRESSION: 1. No acute findings. Signer Name: Maikel Potts MD Signed: 05/13/2021 10:41 AM Workstation Name: [id number] CT ABDOMEN AND PELVIS WITH CONTRAST INDICATION / CLINICAL INFORMATION: upper abdominal tenderness, assess for obstruction. TECHNIQUE: Axial CT images were obtained through the abdomen and pelvis after 100 cc Omnipaque [address] scans at this location are performed using CT dose reduction for ALARA by means of automated exposure control. COMPARISON: 12/12/2020 FINDINGS: LOWER CHEST: No significant abnormality. LIVER: There is a 2 cm hypoattenuation in the periphery of the posterior right liver as seen on series 2 image 36. GALLBLADDER: No significant abnormality. BILE DUCTS: No significant abnormality. PANCREAS: No significant abnormality. SPLEEN: No significant abnormality. ADRENALS: No significant abnormality. RIGHT KIDNEY / URETER: No significant abnormality. LEFT KIDNEY / URETER: No significant abnormality. STOMACH / SMALL BOWEL: No significant abnormality. COLON: No significant abnormality. APPENDIX: No significant abnormality. PERITONEUM: No free fluid. No free air. No fluid collection. LYMPH NODES: No significant adenopathy. AORTA / ARTERIES: No signifi cant abnormality. IVC / VEINS: No significant abnormality. URINARY BLADDER: No significant abnormality. REPRODUCTIVE ORGANS: No significant abnormality. ADDITIONAL FINDINGS: None. SKELETAL SYSTEM: No significant abnormality. IMPRESSION: 1. No significant abnormality or evidence of obstruction. 2. Incidental 2 cm hepatic hypodensity in the posterior right hepatic lobe is incompletely characterized. Findings likely represent a benign lesion such as hemangioma. If clinically indicated, a nonemergent MRI can be performed for further evaluation. Signer Name: Maikel Potts MD Signed: 05/13/2021 7:12 PM Workstation Name: [id number] - Medical Decision Making 25-year-old female presents with 6 days of nausea/vomiting, generalized abdominal pain worse in the left upper quadrant region, decreased appetite, and chest pain which has been constant. Patient states her last bowel movement was 1 week ago. She is afebrile and with normal vital signs. Physical examination reveals a thin appearing female in no acute distress. She has dry mucous membranes. She has a nonfocal neurologic exam. She has tenderness to palpation of the left upper quadrant, epigastrium, and right upper quadrant of the abdomen. She has no guarding or rebound tenderness. The remainder of her physical exam is within normal limits. Labs were drawn in triage and reveal no significant leukocytosis but she has evidence of hemoconcentration with hemoglobin of 17.1. Chemistry reveals normal kidney function but there is hypokalemia with potassium of 2.8. T bili is elevated at 3.4 but the bili is only 0.5. Patient's test is negative. Chest x-ray reveals no acute abnormalities. We will add on a troponin level. We will give Phenergan and 40 mEq of p.o. potassium as well as 1 L of IV fluids. We will give morphine for her pain. We will obtain CT of the abdomen and pelvis to assess for evidence of bowel obstruction, colitis, or other intra-abdominal abnormality. We will continue to monitor the patient closely. Initial troponin is negative. The patient's heart score is 1. When I went to reassess the patient 7:15 PM, the patient reported that her nausea has resolved after the Phenergan but she still has no IV, has received no IV fluids, and has not had her CT scan performed yet. I asked if she could provide us with a urine sample and she says she will try. I spoke with the patient's nurse and asked them to please place an IV and give the meds whenever possible. At 8:20 PM, the patient CT of the abdomen pelvis reveals no acute abnormalities but there is incidental finding of liver attenuation suspected to be a benign hemangioma. Copy of the report was printed and given to the patient so that she can follow up this finding as an outpatient. At this time the patient has IV fluids running, she has remained without nausea/vomiting since receiving the medications. She wants to proceed with p.o. trial and then we will follow up the patient's repeat troponin and add on a repeat BMP. Her abdominal pain/chest pain has resolved entirely and she has no tenderness on exam At 9:30 PM, patient's repeat troponin is negative. Given her low heart score and 2 - troponins, she is low risk. Urinalysis shows no obvious evidence of urinary tract infection. Repeat BMP reveals mild hypokalemia with potassium of 3.3. I discussed with the patient the need to drink electrolyte containing fluid and to have repeat labs in few days to assess her potassium level. We will proceed with plan to discharge the patient with a prescription for Phenergan instructions to follow-up with a primary care doctor in 1 to 2 days. The patient expressed understanding and agreement with this plan of care. She was given strict return precautions. The patient was encouraged to get tested for Covid as an outpatient and to quarantine and self isolate until that time. Critical Care Time: Yes Critical care time in (mins) excluding proc time.: 35 Critical care attestation.: If time is entered above; I have spent that time in minutes in the direct care of this critically ill patient, excluding procedure time. Critical care time was spent in the evaluation/assessment, work-up, and management of nausea and vomiting with electrolyte abnormalities and requiring IV fluids, pain medication, electrolyte route placement, and frequent reevaluation and reassessment. ED Disposition Clinical Impression: Abdominal pain, Nausea & vomiting, Dehydration, Hypokalemia, Liver hemangioma, Chest pain Disposition: HOME / SELF CARE / HOMELESS Is pt being admited?: No Condition: Stable Instructions: Nausea, Adult, Hypokalemia, Nonspecific Chest Pain, Adult, Dehyd ration, Adult, [id number], Rehydration, Adult Additional Instructions: Please follow-up with primary care doctor in a few days to have your labs including potassium rechecked. You have been given a copy of your CT report which will need to be followed up on an outpatient basis. Return to the emergency department should you develop worsening symptoms, inability to tole rate food or drink by mouth, or any other new concerns. Prescriptions: Promethazine [Phenergan] 25 mg PO Q6HR PRN #12 tab PRN Reason: Nausea And Vomiting Referrals: PRIMARY CAREMD [Primary Care Provider] - 3-5 Days [facility] [Provider Group] - 3-5 Days
--- NOTE | 2021-05-13 20:16 | Cat Scan Report ---
CT ABDOMEN AND PELVIS WITH CONTRAST INDICATION / CLINICAL INFORMATION: upper abdominal tenderness, assess for obstruction. TECHNIQUE: Axial CT images were obtained through the abdomen and pelvis after 100 cc Omnipaque [address] scans at this location are performed using CT dose reduction for ALARA by means of automated exposure control. COMPARISON: 12/12/2020 FINDINGS: LOWER CHEST: No significant abnormality. LIVER: There is a 2 cm hypoattenuation in the periphery of the posterior right liver as seen on serie s 2 image 36. GALLBLADDER: No significant abnormality. BILE DUCTS: No significant abnormality. PANCREAS: No significant abnormality. SPLEEN: No significant abnormality. ADRENALS: No significant abnormality. RIGHT KIDNEY / URETER: No significant abnormality. LEFT KIDNEY / URETER: No significant abnormality. STOMACH / SMALL BOWEL: No significant abnormality. COLON: No significant abnormality. APPENDIX: No significant abnormality. PERITONEUM: No free fluid. No free air. No fluid collection. LYMPH NODES: No significant adenopathy. AORTA / ARTERIES: No significant abnormality. IVC / VEINS: No significant abnormality. URINARY BLADDER: No significant abnormality. REPRODUCTIVE ORGANS: No significant abnormality. ADDITIONAL FINDINGS: None. SKELETAL SYSTEM: No significant abnormality. IMPRESSION: 1. No significant abnormality or evidence of obstruction. 2. Incidental 2 cm hepatic hypodensity in the posterior right hepatic lobe is incompletely characteri zed. Findings likely represent a benign lesion such as hemangioma. If clinically indicated, a nonemer gent MRI can be performed for further evaluation. Signer Name: Maikel Potts MD Signed: 05/13/2021 8:12 PM Workstation Name: [id number]
[2021-05-13 21:04] LABS: Bilirubin,Urine NEG (Negative); Blood,Urine LG (Negative); Color,Urine Yellow (Yellow); Mucus,Urine 3+ /HPF
[2021-05-13 21:24] LABS: BUN/Creatinine Ratio 24; Blood Urea Nitrogen 19 mg/dL (7-17); Calcium 9.4 mg/dL (8.4-10.2); Hemolysis Index 6
--- NOTE | 2021-05-15 10:56 | Electrocardiograph Report ---
[facility] Test Date: 2021-05-13 Test Time: 10:24:11 Pat Name: ALEXIS HOWARD Department: Room: Gender: F Front Counter Attendant: AGUILA : 1995 Requested By: SEMAJ BELLE Order Number: [id number] Reading MD: Michael Wheeler Measurements Intervals [place] Rate: 79 P: 81 [place]: 150 QRS: 38 QRSD: 89 T: 47 QT: 411 QTc: 473 Interpretive Statements Sinus rhythm Right atrial enlargement Probable left ventricular hypertrophy No previous ECG available for comparison Electronically Signed On 05-15-2021 10:56:24 EDT by Michael Wheeler
== END 2021-05-13 21:50 | disposition home or self-care (01) ==
LOC: ED 09:57
DX: E86.0 Dehydration (principal); R11.2 Nausea with vomiting, unspecified; D18.09 Hemangioma of other sites; R10.9 Unspecified abdominal pain; R07.89 Other chest pain; E87.6 Hypokalemia; J45.909 Unspecified asthma, uncomplicated; Z88.5 Allergy status to narcotic agent; Z91.018 Allergy to other foods; Z88.8 Allergy status to other drugs, medicaments and biological substances; Z79.899 Other long term (current) drug therapy
CPT/HCPCS: 36415; 71046; 74177; 80048; 80076; 81001; 83690; 83735; 84484; 84703; 85025; 93005; 96361; 96374; 99284; J2270; J7030; Q0169; Q9967

== ENCOUNTER 2021-05-27 23:10 | Emergency (ER) | payer MEDICAID | END 2021-05-28 01:40 | disposition left against medical advice (07) | LOC: ED 23:10 | DX: Z00.8 Encounter for other general examination (principal); Z53.21 Procedure and treatment not carried out due to patient leaving prior to being seen by health care provider ==